=== PATIENT | female | born 1970 | race Hispanic/Latino ===

== ENCOUNTER 2021-04-30 18:02 | Inpatient (IN) | payer BC ==
--- NOTE | 2021-04-30 22:14 | XRay Report ---
RIGHT TOES 2 VIEWS INDICATION / CLINICAL INFORMATION: Toe pain possible infection COMPARISON: None available. FINDINGS: BONES / JOINT(S): No acute fracture or subluxation. Bony erosion distal phalanx great toe best seen a t the tuft.. SOFT TISSUES: Since of soft tissue gas compatible with infection extending from the great toe proxima lly to the level the mid foot along the medial aspect. There is also extension adjacent to the proxim al phalanx of the second digit. ADDITIONAL FINDINGS: None. Impression: Osteomyelitis with extensive soft tissue infection. Signer Name: Florentin Ty MD Signed: 04/30/2021 10:09 PM Workstation Name: [id number]
[2021-04-30 22:23] LABS: Basophils # (Auto) 0.1 K/mm3 (0.0-0.1); Basophils % (Auto) 0.4 % (0.0-1.8); Eosinophils % (Auto) 0.1 % (0.0-4.3); Hematocrit 39.4 % (30.3-42.9); Hemoglobin 13.2 gm/dl (10.1-14.3); Lymphocytes # (Auto) 0.7 K/mm3 (1.2-5.4); Lymphocytes % (Auto) 5.7 % (13.4-35.0); Mean Corpuscular HGB Conc 33 % (30-34); Mean Corpuscular Volume 86 fl (79-97); Monocytes # (Auto) 0.9 K/mm3 (0.0-0.8); Monocytes % (Auto) 6.6 % (0.0-7.3); Platelet Count 236 K/mm3 (140-440); Red Cell Distribution Width 14.6 % (13.2-15.2)
[2021-04-30 22:33] LABS: Albumin 2.9 g/dL (3.9-5); Calcium 8.7 mg/dL (8.4-10.2)
[2021-05-01 00:01] LABS: Erythrocyte Sedimentation Rate 33 mm/Hr (0-20)
--- NOTE | 2021-05-01 01:28 | Emergency Department Report ---
ED Extremity Problem HPI - General Chief complaint: Extremity Problem,Nontraumatic Stated complaint: RT FOOT DISCOLORED Time Seen by Provider: 05/01/21 01:15 Source: patient Mode of arrival: Wheelchair Limitations: No Limitations - History of Present Illness Initial comments: Patient is a 51-year-old female presents emergency room with complaints of right foot discoloration and pain. Patient states she was evaluated in the ER and discharged home. Patient states that the foot pain and discoloration started after she smashed her right great toenail. Patient states that she was evaluated in the ER and discharged home. Patient states that since then the discoloration and pain and infection and redness has worsened. Patient states that she is already had an ultrasound to her right lower extremity to rule out a DVT. Patient states she is not taking oral antibiotics. Patient states the pain is a 10 out of 10. Patient states the pain is worsening. Patient states the pain is severe. Patient states is a stabbing pain. Patient denies fever and chills. Patient denies chest pain and shortness of breath. Patient denies headache. Patient denies dizziness. Patient denies recent travel. Patient denies recent international travel. Pat ient denies exposure to the novel coronavirus. Patient denies sick contacts. Patient denies fever and chills. Patient denies cough. Patient denies diarrhea. Patient denies coming in contact with anybody with symptoms of the novel coronavirus. MD Complaint: extremity pain, extremity swelling Location: right, lower extremity History of Same: Yes Radiation: none Severity scale (0 -10): 10 Quality: stabbing Consistency: constant Improves with: rest Worsens with: weight bearing, walking, palpation Associated Symptoms: denies: chest pain, shortness of breath, fever, myalgias, arthralgias - Related Data Allergies Allergy/AdvReac Type Severity Reaction Status Date / Time No Known Allergies Allergy Unverified 04/30/21 18:32 ED Review of Systems ROS: Stated complaint: RT FOOT DISCOLORED Other details as noted in HPI Constitutional: denies: chills, fever Eyes: denies: eye pain, eye discharge, vision change ENT: denies: ear pain, throat pain Respiratory: denies: cough, shortness of breath, wheezing Cardiovascular: denies: chest pain, palpitations Endocrine: no symptoms reported Gastrointestinal: denies: abdominal pain, nausea, diarrhea Genitourinary: denies: urgency, dysuria, discharge Musculoskeletal: denies: back pain, joint swelling, arthralgia Skin: denies: rash, lesions Neurological: denies: headache, weakness, paresthesias Psychiatric: denies: anxiety, depression Hematological/Lymphatic: denies: easy bleeding, easy bruising ED Past Medical Hx - Past Medical History Previous Medical History?: Yes Hx Diabetes: Yes Additional medical history: PCOS - Surgical History Past Surgical History?: Yes Additional Surgical History: muscles in eyes cut, kidney stretched, urethra stretched, tonsil, hyst - Family History Family history: no significant - Social History Smoking Status: Never Smoker Substance Use Type: None ED Physical Exam - General Limitations: No Limitations General appearance: alert, in no apparent distress - Head Head exam: Present: atraumatic, normocephalic - Eye Eye exam: Present: normal appearance - ENT ENT exam: Present: mucous membranes moist - Neck Neck exam: Present: normal inspection - Respiratory Respiratory exam: Present: normal lung sounds bilaterally. Absent: respiratory distress - Cardiovascular Cardiovascular Exam: Present: regular rate, normal rhythm. Absent: systolic murmur, diastolic murmur, rubs, gallop - GI/Abdominal GI/Abdominal exam: Present: soft, normal bowel sounds - Extremities Exam Extremities exam: Present: normal inspection (Except for right foot.), tenderness (Right foot), other (Right foot great toe discoloration noted. Patient has degloving. Patient has redness to the skin. Patient has a purulent discharge.). Absent: calf tenderness - Back Exam Back exam: Present: normal inspection - Neurological Exam Neurological exam: Present: alert, oriented X3 - Psychiatric Psychiatric exam: Present: normal affect, normal mood - Skin Skin exam: Present: warm, dry, intact, normal color. Absent: rash ED Course Vital Signs 04/30/21 18:33 Temperature 99.4 F Pulse Rate 114 H Respiratory 20 Rate Blood Pressure 112/59 O2 Sat by Pulse 99 Oximetry - Reevaluation(s) Reevaluation #1: I discussed all results with patient. I discussed plan of care with patient. Patient agrees with plan of care and admission. Patient to be admitted to the hospitalist service. 05/01/21 01:45 - Consultations Consultation #1: Hospitalist consulted for admission. Hospitalist to admit patient. 05/01/21 01:50 ED Medical Decision Making - Lab Data Result diagrams: 04/30/21 21:59 04/30/21 21:59 - Radiology Data Radiology results: report reviewed, image reviewed RIGHT TOES 2 VIEWS INDICATION / CLINICAL INFORMATION: Toe pain possible infection COMPARISON: None available. FINDINGS: BONES / JOINT(S): No acute fracture or subluxation. Bony erosion distal phalanx great toe best seen at the tuft.. SOFT TISSUES: Since of soft tissue gas compatible with infection extending from the great toe proximally to the level the mid foot along the medial aspect. There is also extension adjacent to the proximal phalanx of the second digit. ADDITIONAL FINDINGS: None. Impression: Osteomyelitis with extensive soft tissue infection. - Medical Decision Making Patient is a 51-year-old female that presents emergency room with complaints of right great toe discoloration and pain. 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 Patient right foot is warm to touch. Patient has good pulses in both feet. Patient had an x-ray done of the right foot and it shows osteomyelitis with subcutaneous gas. Patient's tach ycardic and elevated WBC. Patient is also found to be septic. Patient started on septic protocol after initial evaluation. Patient given antibiotics. Patient given IV fluids. Patient had labs done which showed elevated WBC and acute renal failure. Patient given broad-spectrum antibiotics to include Zosyn and vancomycin. Patient admitted to the hospital service for further evaluation and treatment. Critical care time documented due to the multiple reassessments, prolonged time at the bedside, interpretation of diagnostics and labs. - Differential Diagnosis sepsis. dm ulcer, cellulitis, abscess, Critical Care Time: Yes Critical care time in (mins) excluding proc time.: 35 Critical care attestation.: If time is entered above; I have spent that time in minutes in the direct care o f this critically ill patient, excluding procedure time. Critical Care Time: 35 minutes ED Disposition Clinical Impression: Foot pain, right DM foot ulcer Qualifiers: Diabetic foot ulcer location: toe Diabetes mellitus type: type 2 Laterality: right Non-pressure ulcer stage: unspecified non-pressure ulcer stage Qualified Code(s): E11.621 - Type 2 diabetes mellitus with foot ulcer; L97.519 - Non- pressure chronic ulcer of other part of right foot with unspecified severity Sepsis Qualifiers: Sepsis type: sepsis due to unspecified organism Sepsis acute organ dysfunction status: with acute organ dysfunction Severe sepsis acute organ dysfunction type: acute renal failure Acute renal failure type: unspecified Severe sepsis shock status: without septic shock Qualified Code(s): A41.9 - Sepsis, unspecified organism; R65.20 - Severe sepsis without septic shock; N17.9 - Acute kidney failure, unspecified ARF (acute renal failure) Qualifiers: Acute renal failure type: unspecified Qualified Code(s): N17.9 - Acute kidney f ailure, unspecified Osteomyelitis Qualifiers: Osteomyelitis type: unspecified type Osteomyelitis location: unspecified site Qualified Code(s): M86.9 - Osteomyelitis, unspecified Disposition: 09 OP ADMIT IP TO THIS HOSP Is pt being admited?: Yes Does the pt Need Aspirin: No Condition: Critical Instructions: Diabetes Mellitus Type 2 in Adults (ED) Time of Disposition: 01:55
[2021-05-01] MEDS ORDERED: SODIUM CHLORIDE 0.9% 1000 ML IV SOLN IV ONE (01:29)
[2021-05-01] MEDS ORDERED: PIPERACILLIN/TAZOBACTAM 3.375 3.375 GM/50 ML BAG IV ONE (01:39)
[2021-05-01] MEDS ORDERED: VANCOMYCIN/NS 1 GM/250 ML 1 GM/250 ML BAG IV NR (02:00)
--- NOTE | 2021-05-01 02:02 | History and Physical Report ---
History of Present Illness Date of examination: 05/01/21 Date of admission: 04/30/21 Chief complaint: Right great pain and pain Right toe diabetic ulcer History of present illness: This is a 51-year-old female presents ED with complaints of right foot pain and ulcer. patient past medical history of diabetes. Patient states that the foot pain and discoloration started is ongoing for about 2 weeks after she smashed her right great toenail. She said she came to ED and was discharged home. Patient states that since then the discoloration and pain and infection and redness has worsened. X-ray of right great toe shoed osteomylitis. Patient states Patient states the pain is a 6 out of 10. Patient denies alcohol, tobacco and illicit drug use. Past History Past Medical History: diabetes, other (right great toe diabetic ulcer) Past Surgical History: No surgical history Social history: no significant social history, lives with family Family history: diabetes Medications and Allergies Allergies Allergy/AdvReac Type Severity Reaction Status Date / Time No Known Allergies Allergy Unverified 04/30/21 18:32 Active Meds: Active Medications Piperacillin Sod/Tazobactam Sod (Zosyn/Ns 3.375gm/50ml) 3.375 gm in 50 mls @ 100 mls/hr IV ONCE ONE; Protocol Stop: 05/01/21 02:08 Vancomycin HCl (Vancomycin/Ns 1 Gm/250 Ml) 1 gm in 250 mls @ 167.007 mls/hr IV PREOP NR; Protocol Review of Systems Ears, nose, mouth and throat: no epistaxis, no bleeding gums Breasts: no discharge Cardiovascular: leg edema Gastrointestinal: no melena Integumentary: redness (Patient has bilateral leg edema, right foot great toe edema, ulcer with redness and discoloration. Unable to feel pulses to the right leg /right foot mostly secondary to edema. Vascular surgeon has been consulted), blisters, color changes, foot/leg ulcers Neurological: no confusion Psychiatric: anxiety Hematologic/Lymphatic: no easy bruising, no easy bleeding Allergic/Immunologic: no urticaria Exam - Constitutional Vitals: Temp Pulse Resp BP Pulse Ox 98.9 F 95 H 20 104/61 99 05/01/21 01:28 05/01/21 01:28 05/01/21 01:32 05/01/21 01:28 05/01/21 01:32 General appearance: Present: mild distress, obese - EENT Eyes: Present: PERRL ENT: hearing intact, clear oral mucosa - Neck Neck: Present: supple, normal ROM - Respiratory Respiratory effort: normal Respiratory: bilateral: CTA - Cardiovascular Heart Sounds: Present: S1 & S2. Absent: rub, click - Extremities Extremities: pulses symmetrical, No edema Peripheral Pulses: within normal limits - Abdominal General gastrointestinal: Present: soft, non-tender, non-distended, normal bowel sounds Female genitourinary: Present: normal - Integumentary Integumentary: Present: clear, warm, dry - Musculoskeletal Musculoskeletal: gait normal, strength equal bilaterally - Psychiatric Psychiatric: appropriate mood/affect, intact judgment & insight - Neurologic Neurologic: CNII-XII intact, moves all extremities - Allied Health Allied health notes reviewed: nursing Results - Labs CBC & Chem 7: 04/30/21 21:59 04/30/21 21:59 Labs: Abnormal lab results 04/30/21 04/30/21 04/30/21 Range/Units 18:37 21:59 21:59 WBC 13.2 H (4.5-11.0) K/mm3 Lymph % (Auto) 5.7 L (13.4-35.0) % Lymph # (Auto) 0.7 L (1.2-5.4) K/mm3 Door # (Auto) 0.9 H (0.0-0.8) K/mm3 Seg Neutrophils % 87.2 H (40.0-70.0) % Seg Neutrophils # 11.5 H (1.8-7.7) K/mm3 Sodium 133 L (137-145) mmol/L Chloride 94.1 L (98-107) mmol/L BUN 27 H (7-17) mg/dL Creatinine 1.5 H (0.6-1.2) mg/dL Glucose 225 H (65-100) mg/dL POC Glucose 272 H (70-105) mg/dL Total Bilirubin 3.10 H (0.1-1.2) mg/dL Alkaline Phosphatase 611 H (35-129) units/L Albumin 2.9 L (3.9-5) g/dL Assessment and Plan - Patient Problems (1) DM foot ulcer Current Visit: Yes Status: Acute Qualifiers: Diabetic foot ulcer location: toe Diabetes mellitus type: type 2 Lat erality: right Non-pressure ulcer stage: unspecified non-pressure ulcer stage Qualified Code(s): E11.621 - Type 2 diabetes mellitus with foot ulcer; L97.519 - Non-pressure chronic ulcer of other part of right foot with unspecified sev erity Plan to address problem: Bilateral leg edema, right foot and right great toe ulcer with discoloration. Unable to feel right foot pulse likely secondary to swelling/edema. Infectious disease and vascular surgeon consult Wound care consult (2) Foot pain, right Current Visit: Yes Status: Acute Plan to address problem: Pain manage PRN (3) Osteomyelitis Current Visit: Yes Status: Acute Qualifiers: Osteomyelitis type: unspecified type Osteomyelitis location: unspecified site Qualified Code(s): M86.9 - Osteomyelitis, unspecified Plan to address problem: ID consult follow-up with recommendation Patient given vancomycin in ED X-ray great toe positive for osteomylitis (4) Sepsis Current Visit: Yes Status: Acute Qualifiers: Sepsis type: sepsis due to unspecified organism Sepsis acute organ dysfunction status: with acute organ dysfunction Severe sepsis acute organ dysfunction type: acute renal failure Acute renal failure type: unspecified Severe sepsis shock status: without septic shock Qualified Code(s): A41.9 - Sepsis, unspecified organism; R65.20 - Severe sepsis without septic shock; N17.9 - Acute kidney failure, unspecified Plan to address problem: 2/2 to osteomylites-start IV hydration Monitor WBC F/u with ID recommendation (5) ARF (acute renal failure) Current Visit: Yes Status: Acute Qualifiers: Acute renal failure type: unspecified Qualified Code(s): N17.9 - Acute kidney failure, unspecified Plan to address problem: Monitor Kidney function avoid nephrotoxic drugs IV hydration and we'll consult pattern and chain maker if needed (6) DVT prophylaxis Current Visit: Yes Status: Acute Plan to address problem: heparin subcutaneous
[2021-05-01] MEDS ORDERED: SENNOSIDES 8.6 MG TAB PO PRN (02:30)
[2021-05-01] MEDS ORDERED: IBUPROFEN 600 MG TAB PO PRN (02:30)
[2021-05-01] MEDS ORDERED: ACETAMINOPHEN 325 MG TAB PO PRN ×2 (02:30)
[2021-05-01] MEDS ORDERED: VANCOMYCIN 2,000 MG in SODIUM CHLORIDE 0.9% 500 ML 500 ML IV ONE (02:45)
[2021-05-01] MEDS ORDERED: VANCOMYCIN/NS 1 GM/250 ML 1 GM/250 ML BAG IV SCH (05:00)
[2021-05-01] MEDS ORDERED: PIPERACIL/TAZOBACTA 4.5/NS 100 4.5 GM/100 ML VIAL IV SCH (05:00)
--- NOTE | 2021-05-01 08:14 | Progress Note ---
Assessment and Plan Assessment and plan: Sepsis. Present on admission. Patient meets criteria given the leukocytosis, tachycardia and diagnosis of osteomyelitis. Right great toe cellulitis/osteomyelitis. Diabetic foot ulcer. Diabetes mellitus type 2, uncontrolled Acute kidney injury. Etiology likely secondary to sepsis/ATN +/-vasomotor nephropathy. PCOS. 05/01/2021. Continue IV antibiotics and follow-up blood cultures. ID consultati on pending. Consider surgery consultation. History Interval history: No new issues overnight. Hospitalist Physical - Constitutional Vitals: Temp Pulse Resp BP Pulse Ox 98.9 F 77 26 H 111/51 92 05/01/21 01:28 05/01/21 07:45 05/01/21 07:45 05/01/21 07:45 05/01/21 07:45 General appearance: Present: mild distress, obese - EENT Eyes: Present: PERRL, EOM intact ENT: hearing intact, clear oral mucosa, dentition normal - Neck Neck: Present: supple, normal ROM - Respiratory Respiratory effort: normal Respiratory: bilateral: CTA - Cardiovascular Rhythm: regular Heart Sounds: Present: S1 & S2. Absent: gallop, rub - Extremities Extremities: no ischemia, Full ROM Extremity abnormal: other (Right foot and great toe with erythema and ulceration of the great toe) - Abdominal General gastrointestinal: soft, non-tender, non-distended, normal bowel sounds - Integumentary Integumentary: Present: clear, warm, dry - Neurologic Neurologic: CNII-XII intact, moves all extremities Results - Labs CBC & Chem 7: 04/30/21 21:59 04/30/21 21:59 Labs: Laboratory Last Values WBC 13.2 K/mm3 (4.5-11.0) H 04/30/21 21:59 RBC 4.60 M/mm3 (3.65-5.03) 04/30/21 21:59 Hgb 13.2 gm/dl (10.1-14.3) 04/30/21 21:59 Hct 39.4 % (30.3-42.9) 04/30/21 21:59 MCV 86 fl (79-97) 04/30/21 21:59 MCH 29 pg (28-32) 04/30/21 21:59 MCHC 33 % (30-34) 04/30/21 21:59 RDW 14.6 % (13.2-15.2) 04/30/21 21:59 Plt Count 236 K/mm3 (140-440) 04/30/21 21:59 Lymph % (Auto) 5.7 % (13.4-35.0) L 04/30/21 21:59 [place] % (Auto) 6.6 % (0.0-7.3) 04/30/21 21:59 Eos % (Auto) 0.1 % (0.0-4.3) 04/30/21 21:59 Baso % (Auto) 0.4 % (0.0-1.8) 04/30/21 21:59 Lymph # (Auto) 0.7 K/mm3 (1.2-5.4) L 04/30/21 21:59 [place] # (Auto) 0.9 K/mm3 (0.0-0.8) H 04/30/21 21:59 Eos # (Auto) 0.0 K/mm3 (0.0-0.4) 04/30/21 21:59 Baso # (Auto) 0.1 K/mm3 (0.0-0.1) 04/30/21 21:59 Seg Neutrophils % 87.2 % (40.0-70.0) H 04/30/21 21:59 Seg Neutrophils # 11.5 K/mm3 (1.8-7.7) H 04/30/21 21:59 ESR 33 mm/Hr (0-20) 04/30/21 21:59 Sodium 133 mmol/L (137-145) L 04/30/21 21:59 Potassium 4.2 mmol/L (3.6-5.0) 04/30/21 21:59 Chloride 94.1 mmol/L (98-107) L 04/30/21 21:59 Carbon Dioxide 24 mmol/L (22-30) 04/30/21 21:59 Anion Gap 19 mmol/L 04/30/21 21:59 BUN 27 mg/dL (7-17) H 04/30/21 21:59 Creatinine 1.5 mg/dL (0.6-1.2) H 04/30/21 21:59 Estimated GFR 37 ml/min 04/30/21 21:59 BUN/Creatinine Ratio 18 % 04/30/21 21:59 Glucose 225 mg/dL (65-100) H 04/30/21 21:59 POC Glucose 272 mg/dL (70-105) H 04/30/21 18:37 Lactic Acid 1.90 mmol/L (0.7-2.0) 05/01/21 03:19 Calcium 8.7 mg/dL (8.4-10.2) 04/30/21 21:59 Total Bilirubin 3.10 mg/dL (0.1-1.2) H 04/30/21 21:59 AST 38 units/L (5-40) 04/30/21 21:59 ALT 37 units/L (7-56) 04/30/21 21:59 Alkaline Phosphatase 611 units/L (35-129) H 04/30/21 21:59 Total Protein 7.1 g/dL (6.3-8.2) 04/30/21 21:59 Albumin 2.9 g/dL (3.9-5) L 04/30/21 21:59 Albumin/Globulin Ratio 0.7 % 04/30/21 21:59 Blood Type O POSITIVE 05/01/21 03:25 Antibody Screen Negative 05/01/21 03:25 Microbiology: Microbiology 05/01/21 02:04 Peripheral/Venous Blood Culture - Preliminary Culture in Progress 05/01/21 01:45 Peripheral/Venous Blood Culture - Preliminary Culture in Progress Active Medications - Current Medications Current Medications: Generic Name Dose Route Start Last Admin Trade Name Freq PRN Reason Stop Dose Admin Acetaminophen 650 mg 05/01/21 02:30 Acetaminophen 325 Mg Tab PO Q4H PRN Pain MILD(1-3)/Fever >100.5/MORALES Hydrocodone Bitart/Acetaminophen 2 each 05/01/21 02:30 Hydrocodone/Acetaminophen 5-325 Mg Tab PO Q6H PRN Pain, Moderate (4-6) Heparin Sodium (Porcine) 5,000 unit 05/01/21 06:00 Heparin 5,000 Unit/1 Ml Vial SUB-Q Q8HR MARI Sodium Chloride 1,000 mls @ 75 mls/hr 05/01/21 02:30 Nacl 0.9% 1000 Ml IV DIRECT MARI Vancomycin HCl 1,500 mg/ 530 mls @ 333.333 mls/hr 05/02/21 06:00 Sodium Chloride IV Q24H MARI Piperacillin Sod/Tazobactam Sod 4.5 gm in 100 mls @ 200 mls/hr 05/01/21 10:00 Zosyn/Ns 4.5gm/100ml IV Q8H MARI Protocol Ibuprofen 600 mg 05/01/21 02:30 Ibuprofen 600 Mg Tab PO Q6H PRN Pain, Mild (1-3) Ondansetron HCl 4 mg 05/01/21 02:30 Ondansetron 4 Mg/2 Ml Inj IV Q8H PRN Nausea And Vomiting Senna 8.6 mg 05/01/21 02:30 Sennosides 8.6 Mg Tab PO Q12HR PRN Constipation Sodium Chloride 10 ml 05/01/21 10:00 Sodium Chloride 0.9% 10 Ml Flush Syringe IV BID MARI
[2021-05-01] MEDS ORDERED: DEXTROSE 50% IN WATER (25GM) 50 ML SYRINGE IV ONE (09:00)
[2021-05-01] MEDS ORDERED: PIPERACIL-TAZO 2.25 GM/50 ML 2.25 GM/50 ML BAG IV SCH (10:00)
[2021-05-01] MEDS: HYDROcodone/ACETAMINOPHEN 5-325 MG TAB PO PRN (13:02)
[2021-05-01] MEDS: HEPARIN 5,000 UNIT/1 ML VIAL SUB-Q SCH ×3 (13:03→22:05)
[2021-05-01] MEDS: PIPERACIL/TAZOBACTA 4.5/NS 100 4.5 GM/100 ML VIAL IV SCH ×2 (13:03→17:35)
[2021-05-01] MEDS ORDERED: WATER FOR INJ Sterile (PF) 10 ML ONE (13:38)
--- NOTE | 2021-05-01 14:14 | Event Note ---
Date: 05/01/21 51 year old female with DM infection of the right first digit with osteomyelitis and ARF. Agree with antibiotics. Will need general surgery consult or orthopedics consult for osteomyelitis. Recommend infection disease consult for osteomyelitis. Ordered venous ultrasound for edema. Ordered arterial ultrasound. Will see patient tomorrow once ultrasounds completed to discuss if patient requires angiography.
[2021-05-01] MEDS: SODIUM CHLORIDE 0.9% 1000 ML 1,000 ML IV SCH (15:28)
[2021-05-01] MEDS: INSULIN REGULAR, HUMAN 100 UNITS/1 ML SUB-Q SCH ×2 (17:35→22:58)
[2021-05-01] MEDS ORDERED: INSULIN REGULAR, HUMAN 100 UNITS/1 ML SUB-Q SCH (22:00)
[2021-05-02] MEDS: PIPERACIL/TAZOBACTA 4.5/NS 100 4.5 GM/100 ML VIAL IV SCH ×3 (01:17→18:17)
[2021-05-02 04:13] LABS: Bacteria,Urine 1+ /HPF (Negative); Bilirubin,Urine NEG (Negative); Blood,Urine NEG (Negative); Color,Urine Amber (Yellow); Mucus,Urine FEW /HPF; Protein,Urine <15 mg/dL mg/dL (Negative)
[2021-05-02] MEDS: HEPARIN 5,000 UNIT/1 ML VIAL SUB-Q SCH ×3 (06:03→21:17)
[2021-05-02] MEDS: VANCOMYCIN 1,500 MG in SODIUM CHLORIDE 0.9% 500 ML 500 ML IV SCH (06:03)
[2021-05-02] MEDS: ONDANSETRON 4 MG/2 ML INJ IV PRN (06:25)
[2021-05-02] MEDS: HYDROcodone/ACETAMINOPHEN 5-325 MG TAB PO PRN ×2 (06:25→18:20)
[2021-05-02 06:38] LABS: Basophils % (Auto) 0.4 % (0.0-1.8); Eosinophils % (Auto) 0.3 % (0.0-4.3); Hematocrit 33.9 % (30.3-42.9); Hemoglobin 11.6 gm/dl (10.1-14.3); Lymphocytes # (Auto) 0.6 K/mm3 (1.2-5.4); Lymphocytes % (Auto) 5.8 % (13.4-35.0); Mean Corpuscular HGB Conc 34 % (30-34); Mean Corpuscular Volume 86 fl (79-97); Monocytes # (Auto) 0.7 K/mm3 (0.0-0.8); Monocytes % (Auto) 7.4 % (0.0-7.3); Platelet Count 199 K/mm3 (140-440); Red Blood Count 3.95 M/mm3 (3.65-5.03); Red Cell Distribution Width 14.5 % (13.2-15.2)
[2021-05-02 06:52] LABS: Albumin 2.5 g/dL (3.9-5); Calcium 8.2 mg/dL (8.4-10.2)
[2021-05-02] MEDS: INSULIN REGULAR, HUMAN 100 UNITS/1 ML SUB-Q SCH ×4 (07:55→21:55)
--- NOTE | 2021-05-02 09:05 | Progress Note ---
Assessment and Plan Assessment and plan: Sepsis. Present on admission. Patient meets criteria given the leukocytosis, tachycardia and diagnosis of osteomyelitis. Right great toe cellulitis/osteomyelitis. Diabetic foot ulcer. Diabetes mellitus type 2, uncontrolled Acute kidney injury. Etiology likely secondary to sepsis/ATN +/-vasomotor nephropathy. PCOS. 05/01/2021. Continue IV antibiotics and follow-up blood cultures. ID consultati on pending. Consider surgery consultation. 05/02/2021. Consult general surgery for further evaluation. Continue IV antibiotics and follow-up blood cultures. ID consultation pending. History Interval history: No new issues overnight. Hospitalist Physical - Constitutional Vitals: Temp Pulse Resp BP Pulse Ox 97.8 F 90 18 110/53 96 05/02/21 04:41 05/02/21 04:41 05/02/21 04:41 05/02/21 04:41 05/02/21 04:41 General appearance: Present: mild distress, obese - EENT Eyes: Present: PERRL, EOM intact ENT: hearing intact, clear oral mucosa, dentition normal - Neck Neck: Present: supple, normal ROM - Respiratory Respiratory effort: normal Respiratory: bilateral: CTA - Cardiovascular Rhythm: regular Heart Sounds: Present: S1 & S2. Absent: gallop, rub - Extremities Extremities: no ischemia, No edema, Full ROM - Abdominal General gastrointestinal: soft, non-tender, non-distended, normal bowel sounds - Integumentary Integumentary: Present: clear, warm, dry - Neurologic Neurologic: CNII-XII intact, moves all extremities Results - Labs CBC & Chem 7: 05/02/21 05:33 05/02/21 05:33 Labs: Laboratory Last Values WBC 9.6 K/mm3 (4.5-11.0) 05/02/21 05:33 RBC 3.95 M/mm3 (3.65-5.03) 05/02/21 05:33 Hgb 11.6 gm/dl (10.1-14.3) 05/02/21 05:33 Hct 33.9 % (30.3-42.9) 05/02/21 05:33 MCV 86 fl (79-97) 05/02/21 05:33 MCH 29 pg (28-32) 05/02/21 05:33 MCHC 34 % (30-34) 05/02/21 05:33 RDW 14.5 % (13.2-15.2) 05/02/21 05:33 Plt Count 199 K/mm3 (140-440) 05/02/21 05:33 Lymph % (Auto) 5.8 % (13.4-35.0) L 05/02/21 05:33 [place] % (Auto) 7.4 % (0.0-7.3) H 05/02/21 05:33 Eos % (Auto) 0.3 % (0.0-4.3) 05/02/21 05:33 Baso % (Auto) 0.4 % (0.0-1.8) 05/02/21 05:33 Lymph # (Auto) 0.6 K/mm3 (1.2-5.4) L 05/02/21 05:33 [place] # (Auto) 0.7 K/mm3 (0.0-0.8) 05/02/21 05:33 Eos # (Auto) 0.0 K/mm3 (0.0-0.4) 05/02/21 05:33 Baso # (Auto) 0.0 K/mm3 (0.0-0.1) 05/02/21 05:33 Seg Neutrophils % 86.1 % (40.0-70.0) H 05/02/21 05:33 Seg Neutrophils # 8.3 K/mm3 (1.8-7.7) H 05/02/21 05:33 ESR 33 mm/Hr (0-20) 04/30/21 21:59 Sodium 142 mmol/L (137-145) D 05/02/21 05:33 Potassium 3.7 mmol/L (3.6-5.0) 05/02/21 05:33 Chloride 103.7 mmol/L (98-107) 05/02/21 05:33 Carbon Dioxide 27 mmol/L (22-30) 05/02/21 05:33 Anion Gap 15 mmol/L 05/02/21 05:33 BUN 33 mg/dL (7-17) H 05/02/21 05:33 Creatinine 1.3 mg/dL (0.6-1.2) H 05/02/21 05:33 Estimated GFR 43 ml/min 05/02/21 05:33 BUN/Creatinine Ratio 25 % 05/02/21 05:33 Glucose 75 mg/dL (65-100) 05/02/21 05:33 POC Glucose 65 mg/dL (70-105) L 05/02/21 07:50 Lactic Acid 1.90 mmol/L (0.7-2.0) 05/01/21 03:19 Calcium 8.2 mg/dL (8.4-10.2) L 05/02/21 05:33 Total Bilirubin 1.60 mg/dL (0.1-1.2) H 05/02/21 05:33 AST 30 units/L (5-40) 05/02/21 05:33 ALT 31 units/L (7-56) 05/02/21 05:33 Alkaline Phosphatase 438 units/L (35-129) H 05/02/21 05:33 Total Protein 5.8 g/dL (6.3-8.2) L 05/02/21 05:33 Albumin 2.5 g/dL (3.9-5) L 05/02/21 05:33 Albumin/Globulin Ratio 0.8 % 05/02/21 05:33 Urine Color Tia (Yellow) 05/01/21 Unknown Urine Turbidity Slightly-cloudy (Clear) 05/01/21 Unknown Urine pH 5.0 (5.0-7.0) 05/01/21 Unknown Ur Specific [place] 1.018 (1.003-1.030) 05/01/21 Unknown Urine Protein <15 mg/dl mg/dL (Negative) 05/01/21 Unknown Urine Glucose (UA) Neg mg/dL (Negative) 05/01/21 Unknown Urine Ketones Neg mg/dL (Negative) 05/01/21 Unknown Urine Blood Neg (Negative) 05/01/21 Unknown Urine Nitrite Neg (Negative) 05/01/21 Unknown Urine Bilirubin Neg (Negative) 05/01/21 Unknown Urine Urobilinogen 4.0 mg/dL (<2.0) 05/01/21 Unknown Ur Leukocyte Esterase Neg (Negative) 05/01/21 Unknown Urine WBC (Auto) 6.0 /HPF (0.0-6.0) 05/01/21 Unknown Urine RBC (Auto) 4.0 /HPF (0.0-6.0) 05/01/21 Unknown U Epithel Cells (Auto) 4.0 /HPF (0-13.0) 05/01/21 Unknown Urine Bacteria (Auto) 1+ /HPF (Negative) 05/01/21 Unknown Urine Mucus Few /HPF 05/01/21 Unknown Blood Type O POSITIVE 05/01/21 03:25 Antibody Screen Negative 05/01/21 03:25 Microbiology: Microbiology 05/01/21 Unknown Wound - Deep Wound Culture - Preliminary 05/01/21 02:04 Peripheral/Venous Blood Culture - Preliminary NO GROWTH AFTER 24 HOURS 05/01/21 01:45 Peripheral/Venous Blood Culture - Preliminary NO GROWTH AFTER 24 HOURS Sales/IV: Voiding Method Toilet Active Medications - Current Medications Current Medications: Generic Name Dose Route Start Last Admin Trade Name Freq PRN Reason Stop Dose Admin Acetaminophen 650 mg 05/01/21 02:30 05/01/21 13:01 Acetaminophen 325 Mg Tab PO 650 mg Q4H PRN Administration Pain MILD(1-3)/Fever >100.5/MORALES Hydrocodone Bitart/Acetaminophen 2 each 05/01/21 02:30 05/02/21 06:25 Hydrocodone/Acetaminophen 5-325 Mg Tab PO 2 each Q6H PRN Administration Pain, Moderate (4-6) Heparin Sodium (Porcine) 5,000 unit 05/01/21 06:00 05/02/21 06:03 Heparin 5,000 Unit/1 Ml Vial SUB-Q 5,000 unit Q8HR MARI Administration Sodium Chloride 1,000 mls @ 75 mls/hr 05/01/21 02:30 05/01/21 15:28 Nacl 0.9% 1000 Ml IV 75 mls/hr DIRECT MARI Administration Vancomycin HCl 1,500 mg/ 530 mls @ 333.333 mls/hr 05/02/21 06:00 05/02/21 06:03 Sodium Chloride IV 333.333 mls/hr Q24H MARI Administration Piperacillin Sod/Tazobactam Sod 4.5 gm in 100 mls @ 200 mls/hr 05/01/21 10:00 05/02/21 01:17 Zosyn/Ns 4.5gm/100ml IV 200 mls/hr Q8H MARI Administration Protocol Ibuprofen 600 mg 05/01/21 02:30 Ibuprofen 600 Mg Tab PO Q6H PRN Pain, Mild (1-3) Insulin Human Regular 0 units 05/01/21 17:30 05/02/21 07:55 Insulin Regular, Human 100 Units/1 Ml SUB-Q Not Given ACHS [facility] Protocol Ondansetron HCl 4 mg 05/01/21 02:30 05/02/21 06:25 Ondansetron 4 Mg/2 Ml Inj IV 4 mg Q8H PRN Administration Nausea And Vomiting Senna 8.6 mg 05/01/21 02:30 Sennosides 8.6 Mg Tab PO Q12HR PRN Constipation Sodium Chloride 10 ml 05/01/21 10:00 05/01/21 22:05 Sodium Chloride 0.9% 10 Ml Flush Syringe IV 10 ml BID MARI Administration
[2021-05-02] MEDS: SODIUM CHLORIDE 0.9% 1000 ML 1,000 ML IV SCH (09:54)
--- NOTE | 2021-05-02 16:24 | Consultation ---
History of Present Illness - Reason for Consult Consult date: 05/02/21 Diabetic foot infection Requesting physician: LEOBARDO CASTLE - History of Present Illness 51-year-old female presents ED with complaints of right foot pain and ulcer. patient past medical history of diabetes. Patient states that the foot pain and discoloration started is ongoing for about 2 weeks after she smashed her right great toenail. She said she came to ED and was discharged home. Patient states that since then the discoloration and pain and infection and redness has worsened. X-ray of right great toe shoed osteomylitis. Patient states Patient states the pain is a 6 out of 10. Patient denies alcohol, tobacco and illicit drug use. Patient reports she was recently admitted to [facility] for diabetic hyperglycemic issues. She was discharged and then on Monday she noted that her right foot was infected and painful and went to the emergency room. She does not know and cannot state the progression of her wound. The area was marked. There is clearly infected tissue in the right foot. She is on antibiotics. She has acute renal failure. Past History Past Medical History: diabetes, other (right great toe diabetic ulcer) Past Surgical History: No surgical history Social history: no significant social history, lives with family Family history: diabetes Medications and Allergies Allergies Allergy/AdvReac Type Severity Reaction Status Date / Time No Known Allergies Allergy Unverified 04/30/21 18:32 Home Medications Medication Instructions Recorded Confirmed Last Taken Type Gabapentin [Neurontin] 900 mg PO DAILY PRN 05/01/21 05/01/21 Unknown History glipiZIDE [Glucotrol] 10 mg PO BID 05/01/21 05/01/21 04/30/21 22:00 History Active Meds: Active Medications Acetaminophen (Acetaminophen 325 Mg Tab) 650 mg PO Q4H PRN PRN Reason: Pain MILD(1-3)/Fever >100.5/MORALES Last Admin: 05/01/21 13:01 Dose: 650 mg Documented by: Hydrocodone Bitart/Acetaminophen (Hydrocodone/Acetaminophen 5-325 Mg Tab) 2 each PO Q6H PRN PRN Reason: Pain, Moderate (4-6) Last Admin: 05/02/21 06:25 Dose: 2 each Documented by: Heparin Sodium (Porcine) (Heparin 5,000 Unit/1 Ml Vial) 5,000 unit SUB-Q Q8HR [facility] Last Admin: 05/02/21 13:02 Dose: 5,000 unit Documented by: Sodium Chloride (Nacl 0.9% 1000 Ml) 1,000 mls @ 75 mls/hr IV DIRECT [facility] Last Admin: 05/02/21 09:54 Dose: 75 mls/hr Documented by: Vancomycin HCl 1,500 mg/ (Sodium Chloride) 530 mls @ 333.333 mls/hr IV Q24H [facility] Last Admin: 05/02/21 06:03 Dose: 333.333 mls/hr Documented by: Piperacillin Sod/Tazobactam Sod (Zosyn/Ns 4.5gm/100ml) 4.5 gm in 100 mls @ 200 mls/hr IV Q8H [facility]; Protocol Last Admin: 05/02/21 09:54 Dose: 200 mls/hr Documented by: Ibuprofen (Ibuprofen 600 Mg Tab) 600 mg PO Q6H PRN PRN Reason: Pain, Mild (1-3) Insulin Human Regular (Insulin Regular, Human 100 Units/1 Ml) 0 units SUB-Q ACHS [facility]; Protocol Last Admin: 05/02/21 12:48 Dose: 2 units Documented by: Ondansetron HCl (Ondansetron 4 Mg/2 Ml Inj) 4 mg IV Q8H PRN PRN Reason: Nausea And Vomiting Last Admin: 05/02/21 06:25 Dose: 4 mg Documented by: Senna (Sennosides 8.6 Mg Tab) 8.6 mg PO Q12HR PRN PRN Reason: Constipation Sodium Chloride (Sodium Chloride 0.9% 10 Ml Flush Syringe) 10 ml IV BID [facility] Last Admin: 05/02/21 09:54 Dose: 10 ml Documented by: Review of Systems All systems: negative (see HPI) Exam - Constitutional Vitals: Temp Pulse Resp BP Pulse Ox 97.8 F 84 18 94/64 98 05/02/21 08:30 05/02/21 08:30 05/02/21 09:00 05/02/21 08:30 05/02/21 09:00 General appearance: Present: mild distress (Right foot pain) - EENT Eyes: Present: EOM intact ENT: hearing intact - Respiratory Respiratory effort: normal - Extremities Extremities: pulses intact (Left dorsalis pedis pulse intact, the rest of the pedal pulses are nonpalpable), normal temperature, normal color, abnormal (Right first digit and midfoot medial foot infection) Extremity abnormal: edema (2+ right lower extremity, 1+ left lower extremity), other (Hemosiderin staining of the calves) - Abdominal General gastrointestinal: Present: soft, non-tender - Psychiatric Psychiatric: appropriate mood/affect, cooperative Results - Labs CBC & Chem 7: 05/02/21 05:33 05/02/21 05:33 Labs: Abnormal lab results 05/01/21 05/01/21 05/02/21 Range/Units 16:49 21:35 05:33 Lymph % (Auto) 5.8 L (13.4-35.0) % [place] % (Auto) 7.4 H (0.0-7.3) % Lymph # (Auto) 0.6 L (1.2-5.4) K/mm3 Seg Neutrophils % 86.1 H (40.0-70.0) % Seg Neutrophils # 8.3 H (1.8-7.7) K/mm3 BUN (7-17) mg/dL Creatinine (0.6-1.2) mg/dL POC Glucose 250 H 170 H (70-105) mg/dL Calcium (8.4-10.2) mg/dL Total Bilirubin (0.1-1.2) mg/dL Alkaline Phosphatase (35-129) units/L Total Protein (6.3-8.2) g/dL Albumin (3.9-5) g/dL 05/02/21 05/02/21 05/02/21 Range/Units 05:33 07:50 11:20 Lymph % (Auto) (13.4-35.0) % [place] % (Auto) (0.0-7.3) % Lymph # (Auto) (1.2-5.4) K/mm3 Seg Neutrophils % (40.0-70.0) % Seg Neutrophils # (1.8-7.7) K/mm3 BUN 33 H (7-17) mg/dL Creatinine 1.3 H (0.6-1.2) mg/dL POC Glucose 65 L 157 H (70-105) mg/dL Calcium 8.2 L (8.4-10.2) mg/dL Total Bilirubin 1.60 H (0.1-1.2) mg/dL Alkaline Phosphatase 438 H (35-129) units/L Total Protein 5.8 L (6.3-8.2) g/dL Albumin 2.5 L (3.9-5) g/dL Assessment and Plan 51-year-old female with uncontrolled diabetes who presents with right first digit diabetic foot infection. She has nonpalpable right pedal pulses and a palpable left dorsalis pedis pulse. She has hemosiderin deposition of her calves compatible with venous disease. Despite ordering ultrasound yesterday, these have not been done even today. Discussed with patient that given her abnormal pulse exam and the right first digit infection, she would benefit from diagnostic angiography and possible endovascular revascularization. Risks, benefits, and alternatives discussed. Patient agrees with procedure. Creatinine has improved since admission and will likely continue to improve tomorrow making this possible. Discussed situation with Dr. Evans will see patient tomorrow probably for foot debridement. Patient understands that her issues are limb threatening. Continue antibiotics. Appreciate infectious disease seeing the patient.
--- NOTE | 2021-05-02 17:10 | Consultation ---
History of Present Illness Consult date: 05/02/21 Chief complaint: right foot infection - History of present illness History of present illness: 51 yo F with poorly controlled diabetes who presents to ER with right foot wound that has been presents for the last 3 weeks. Patient states she injured her great toe nail and the infection started at that time. Her legs started to swell and she started to experience pain. She had a similar issue with the left great toe nail which she states got better on its own. She states she did not know how bad the infection was until one of her friends saw it and made her come to hospital. She had Tm 100.7 yesterday but denies fevers at home. No n/v. States her sugars have been dropping low while in the hospital because she doesn't usua lly get insulin at home. Surgery is consulted for diabetic infection of right foot Past History Past Medical History: diabetes, other (right great toe diabetic ulcer) Past Surgical History: No surgical history Social history: no significant social history, lives with family Family history: diabetes Medications and Allergies Allergies Allergy/AdvReac Type Severity Reaction Status Date / Time No Known Allergies Allergy Unverified 04/30/21 18:32 Home Medications Medication Instructions Recorded Confirmed Last Taken Type Gabapentin [Neurontin] 900 mg PO DAILY PRN 05/01/21 05/01/21 Unknown History glipiZIDE [Glucotrol] 10 mg PO BID 05/01/21 05/01/21 04/30/21 22:00 History Active Meds: Active Medications Acetaminophen (Acetaminophen 325 Mg Tab) 650 mg PO Q4H PRN PRN Reason: Pain MILD(1-3)/Fever >100.5/MORALES Last Admin: 05/01/21 13:01 Dose: 650 mg Documented by: Hydrocodone Bitart/Acetaminophen (Hydrocodone/Acetaminophen 5-325 Mg Tab) 2 each PO Q6H PRN PRN Reason: Pain, Moderate (4-6) Last Admin: 05/02/21 06:25 Dose: 2 each Documented by: Heparin Sodium (Porcine) (Heparin 5,000 Unit/1 Ml Vial) 5,000 unit SUB-Q Q8HR [facility]I Last Admin: 05/02/21 13:02 Dose: 5,000 unit Documented by: Sodium Chloride (Nacl 0.9% 1000 Ml) 1,000 mls @ 75 mls/hr IV DIRECT [facility]I Last Admin: 05/02/21 09:54 Dose: 75 mls/hr Documented by: Vancomycin HCl 1,500 mg/ (Sodium Chloride) 530 mls @ 333.333 mls/hr IV Q24H [facility] Last Admin: 05/02/21 06:03 Dose: 333.333 mls/hr Documented by: Piperacillin Sod/Tazobactam Sod (Zosyn/Ns 4.5gm/100ml) 4.5 gm in 100 mls @ 200 mls/hr IV Q8H [facility]; Protocol Last Admin: 05/02/21 09:54 Dose: 200 mls/hr Documented by: Ibuprofen (Ibuprofen 600 Mg Tab) 600 mg PO Q6H PRN PRN Reason: Pain, Mild (1-3) Insulin Human Regular (Insulin Regular, Human 100 Units/1 Ml) 0 units SUB-Q ACHS [facility]; Protocol Last Admin: 05/02/21 12:48 Dose: 2 units Documented by: Ondansetron HCl (Ondansetron 4 Mg/2 Ml Inj) 4 mg IV Q8H PRN PRN Reason: Nausea And Vomiting Last Admin: 05/02/21 06:25 Dose: 4 mg Documented by: Senna (Sennosides 8.6 Mg Tab) 8.6 mg PO Q12HR PRN PRN Reason: Constipation Sodium Chloride (Sodium Chloride 0.9% 10 Ml Flush Syringe) 10 ml IV BID [facility] Last Admin: 05/02/21 09:54 Dose: 10 ml Documented by: Review of Systems All systems: negative (10 pt ROS performed and negative except for that listed in HPI) Exam Vital Signs Temp Pulse Resp BP Pulse Ox 99.4 F 114 H 20 112/59 99 04/30/21 18:33 04/30/21 18:33 04/30/21 18:33 04/30/21 18:33 04/30/21 18:33 Narrative exam: Gen: AAOx3. NAD CV: S1, S2+ resp: even and unlabored Ext: B/L LE edema. R foot with necrotic skin and discoloration of dorsal-medial aspect of foot. There is cellulitis of the great toe and forefoot. There is TTP. There is foul smelling drainage. Venous stasis skin changes Results - Labs 05/02/21 05:33 05/02/21 05:33 Abnormal lab results 05/01/21 05/02/21 05/02/21 Range/Units 21:35 05:33 05:33 Lymph % (Auto) 5.8 L (13.4-35.0) % [place] % (Auto) 7.4 H (0.0-7.3) % Lymph # (Auto) 0.6 L (1.2-5.4) K/mm3 Seg Neutrophils % 86.1 H (40.0-70.0) % Seg Neutrophils # 8.3 H (1.8-7.7) K/mm3 BUN 33 H (7-17) mg/dL Creatinine 1.3 H (0.6-1.2) mg/dL POC Glucose 170 H (70-105) mg/dL Calcium 8.2 L (8.4-10.2) mg/dL Total Bilirubin 1.60 H (0.1-1.2) mg/dL Alkaline Phosphatase 438 H (35-129) units/L Total Protein 5.8 L (6.3-8.2) g/dL Albumin 2.5 L (3.9-5) g/dL 05/02/21 05/02/21 Range/Units 07:50 11:20 Lymph % (Auto) (13.4-35.0) % [place] % (Auto) (0.0-7.3) % Lymph # (Auto) (1.2-5.4) K/mm3 Seg Neutrophils % (40.0-70.0) % Seg Neutrophils # (1.8-7.7) K/mm3 BUN (7-17) mg/dL Creatinine (0.6-1.2) mg/dL POC Glucose 65 L 157 H (70-105) mg/dL Calcium (8.4-10.2) mg/dL Total Bilirubin (0.1-1.2) mg/dL Alkaline Phosphatase (35-129) units/L Total Protein (6.3-8.2) g/dL Albumin (3.9-5) g/dL Diabetes panel 05/02/21 Range/Units 05:33 Sodium 142 D (137-145) mmol/L Potassium 3.7 (3.6-5.0) mmol/L Chloride 103.7 (98-107) mmol/L Carbon Dioxide 27 (22-30) mmol/L BUN 33 H (7-17) mg/dL Creatinine 1.3 H (0.6-1.2) mg/dL Glucose 75 (65-100) mg/dL Calcium 8.2 L (8.4-10.2) mg/dL AST 30 (5-40) units/L ALT 31 (7-56) units/L Alkaline Phosphatase 438 H (35-129) units/L Total Protein 5.8 L (6.3-8.2) g/dL Albumin 2.5 L (3.9-5) g/dL Calcium panel 05/02/21 Range/Units 05:33 Calcium 8.2 L (8.4-10.2) mg/dL Albumin 2.5 L (3.9-5) g/dL Pituitary panel 05/02/21 Range/Units 05:33 Sodium 142 D (137-145) mmol/L Potassium 3.7 (3.6-5.0) mmol/L Chloride 103.7 (98-107) mmol/L Carbon Dioxide 27 (22-30) mmol/L BUN 33 H (7-17) mg/dL Creatinine 1.3 H (0.6-1.2) mg/dL Glucose 75 (65-100) mg/dL Calcium 8.2 L (8.4-10.2) mg/dL Adrenal panel 05/02/21 Range/Units 05:33 Sodium 142 D (137-145) mmol/L Potassium 3.7 (3.6-5.0) mmol/L Chloride 103.7 (98-107) mmol/L Carbon Dioxide 27 (22-30) mmol/L BUN 33 H (7-17) mg/dL Creatinine 1.3 H (0.6-1.2) mg/dL Glucose 75 (65-100) mg/dL Calcium 8.2 L (8.4-10.2) mg/dL Total Bilirubin 1.60 H (0.1-1.2) mg/dL AST 30 (5-40) units/L ALT 31 (7-56) units/L Alkaline Phosphatase 438 H (35-129) units/L Total Protein 5.8 L (6.3-8.2) g/dL Albumin 2.5 L (3.9-5) g/dL - Imaging Additional studies: R foot xray Assessment and Plan 51 yo F with Diabetic infection of right foot, osteomyelitis Pt currently stable Plan: 1. NPO p MN tonight 2. IVF - D5NS@125cc/hr. 3. strict glucose control 4. Recommend OR debridement - will add for tomorrow 5. vascular on board - art u/s pending. Plan for angio in am 6. Offloading 7. Continue empiric abx. ID consulted. Likely will need ad terminal makeup operator abx due to osteo. 8. Will obtain deep cultures of wound in OR 9. prn pain control 10. DVT ppx 11. Repeat CBC, BMP in am. Obtain HbA1C Discussed plan with patient and all questions answered. Thank you, please call with questions.
[2021-05-02] MEDS ORDERED: MORPHINE 2 MG/1 ML INJ IV PRN (17:51)
[2021-05-02] MEDS: D5W/0.9% NACL 1,000 ML IV SCH ×2 (18:17→21:16)
[2021-05-02] MEDS ORDERED: SODIUM CHLORIDE 0.9% 500 ML 500 ML IV ONE (19:00)
[2021-05-03] MEDS: PIPERACIL/TAZOBACTA 4.5/NS 100 4.5 GM/100 ML VIAL IV SCH ×2 (02:40→12:01)
[2021-05-03] MEDS: HEPARIN 5,000 UNIT/1 ML VIAL SUB-Q SCH ×3 (05:07→22:22)
[2021-05-03] MEDS: VANCOMYCIN 1,500 MG in SODIUM CHLORIDE 0.9% 500 ML 500 ML IV SCH (05:09)
[2021-05-03 05:16] LABS: Basophils % (Auto) 0.4 % (0.0-1.8); Eosinophils % (Auto) 0.5 % (0.0-4.3); Hematocrit 31.4 % (30.3-42.9); Hemoglobin 10.4 gm/dl (10.1-14.3); Lymphocytes # (Auto) 0.7 K/mm3 (1.2-5.4); Lymphocytes % (Auto) 11.4 % (13.4-35.0); Mean Corpuscular HGB Conc 33 % (30-34); Mean Corpuscular Volume 86 fl (79-97); Monocytes # (Auto) 0.6 K/mm3 (0.0-0.8); Monocytes % (Auto) 8.5 % (0.0-7.3); Platelet Count 175 K/mm3 (140-440); Red Blood Count 3.64 M/mm3 (3.65-5.03); Red Cell Distribution Width 14.5 % (13.2-15.2)
--- NOTE | 2021-05-03 08:30 | Event Note ---
Date: 05/03/21 Pt chart reviewed. Consent obtained for debridement today. VSS, afebrile. WBC remains within normal limits. Added for surgery today. Timing unknown due to OR staffing shortage today.
--- NOTE | 2021-05-03 08:35 | Progress Note ---
Assessment and Plan Assessment and plan: Sepsis. Present on admission. Patient meets criteria given the leukocytosis, tachycardia and diagnosis of osteomyelitis. Right great toe osteomyelitis. Right foot cellulitis Diabetic foot ulcer. Diabetes mellitus type 2, uncontrolled Acute kidney injury. Etiology likely secondary to sepsis/ATN +/-vasomotor nephropathy. PCOS. 05/01/2021. Continue IV antibiotics and follow-up blood cultures. ID consultation pending. Consider surgery consultation. 05/02/2021. Consult general surgery for further evaluation. Continue IV antibiotics and follow-up blood cultures. ID consultation pending. 05/03/2021. Surgery to perform OR debridement today. Vascular surgery also following. Follow-up arterial ultrasound. Continue empiric IV antibiotics. Await ID consultation. BG is well controlled with current regimen. History Interval history: No new issues overnight. Hospitalist Physical - Constitutional Vitals: Temp Pulse Resp BP Pulse Ox 98.3 F 80 18 106/51 94 05/03/21 05:01 05/03/21 05:01 05/03/21 05:01 05/03/21 05:01 05/03/21 05:01 General appearance: Present: mild distress (Right foot pain) - EENT Eyes: Present: PERRL, EOM intact ENT: hearing intact, clear oral mucosa, dentition normal - Neck Neck: Present: supple, normal ROM - Respiratory Respiratory effort: normal Respiratory: bilateral: CTA - Cardiovascular Rhythm: regular Heart Sounds: Present: S1 & S2. Absent: gallop, rub - Extremities Extremities: no ischemia, No edema, Full ROM - Abdominal General gastrointestinal: soft, non-tender, non-distended, normal bowel sounds - Integumentary Integumentary: Present: clear, warm, dry - Neurologic Neurologic: CNII-XII intact, moves all extremities Results - Labs CBC & Chem 7: 05/03/21 04:24 05/03/21 04:24 Labs: Laboratory Last Values WBC 6.5 K/mm3 (4.5-11.0) 05/03/21 04:24 RBC 3.64 M/mm3 (3.65-5.03) L 05/03/21 04:24 Hgb 10.4 gm/dl (10.1-14.3) 05/03/21 04:24 Hct 31.4 % (30.3-42.9) 05/03/21 04:24 MCV 86 fl (79-97) 05/03/21 04:24 MCH 29 pg (28-32) 05/03/21 04:24 MCHC 33 % (30-34) 05/03/21 04:24 RDW 14.5 % (13.2-15.2) 05/03/21 04:24 Plt Count 175 K/mm3 (140-440) 05/03/21 04:24 Lymph % (Auto) 11.4 % (13.4-35.0) L 05/03/21 04:24 [place] % (Auto) 8.5 % (0.0-7.3) H 05/03/21 04:24 Eos % (Auto) 0.5 % (0.0-4.3) 05/03/21 04:24 Baso % (Auto) 0.4 % (0.0-1.8) 05/03/21 04:24 Lymph # (Auto) 0.7 K/mm3 (1.2-5.4) L 05/03/21 04:24 [place] # (Auto) 0.6 K/mm3 (0.0-0.8) 05/03/21 04:24 Eos # (Auto) 0.0 K/mm3 (0.0-0.4) 05/03/21 04:24 Baso # (Auto) 0.0 K/mm3 (0.0-0.1) 05/03/21 04:24 Seg Neutrophils % 79.2 % (40.0-70.0) H 05/03/21 04:24 Seg Neutrophils # 5.2 K/mm3 (1.8-7.7) 05/03/21 04:24 ESR 33 mm/Hr (0-20) 04/30/21 21:59 Sodium 144 mmol/L (137-145) 05/03/21 04:24 Potassium 3.8 mmol/L (3.6-5.0) 05/03/21 04:24 Chloride 108.4 mmol/L (98-107) H 05/03/21 04:24 Carbon Dioxide 25 mmol/L (22-30) 05/03/21 04:24 Anion Gap 14 mmol/L 05/03/21 04:24 BUN 23 mg/dL (7-17) H 05/03/21 04:24 Creatinine 1.1 mg/dL (0.6-1.2) 05/03/21 04:24 Estimated GFR 53 ml/min 05/03/21 04:24 BUN/Creatinine Ratio 21 % 05/03/21 04:24 Glucose 102 mg/dL (65-100) H 05/03/21 04:24 POC Glucose 87 mg/dL (70-105) 05/03/21 07:56 Hemoglobin A1c 9.6 % (4-6) H 05/03/21 04:24 Lactic Acid 1.90 mmol/L (0.7-2.0) 05/01/21 03:19 Calcium 7.0 mg/dL (8.4-10.2) L 05/03/21 04:24 Total Bilirubin 1.60 mg/dL (0.1-1.2) H 05/02/21 05:33 AST 30 units/L (5-40) 05/02/21 05:33 ALT 31 units/L (7-56) 05/02/21 05:33 Alkaline Phosphatase 438 units/L (35-129) H 05/02/21 05:33 Total Protein 5.8 g/dL (6.3-8.2) L 05/02/21 05:33 Albumin 2.5 g/dL (3.9-5) L 05/02/21 05:33 Albumin/Globulin Ratio 0.8 % 05/02/21 05:33 Urine Color Tia (Yellow) 05/01/21 Unknown Urine Turbidity Slightly-cloudy (Clear) 05/01/21 Unknown Urine pH 5.0 (5.0-7.0) 05/01/21 Unknown Ur Specific [place] 1.018 (1.003-1.030) 05/01/21 Unknown Urine Protein <15 mg/dl mg/dL (Negative) 05/01/21 Unknown Urine Glucose (UA) Neg mg/dL (Negative) 05/01/21 Unknown Urine Ketones Neg mg/dL (Negative) 05/01/21 Unknown Urine Blood Neg (Negative) 05/01/21 Unknown Urine Nitrite Neg (Negative) 05/01/21 Unknown Urine Bilirubin Neg (Negative) 05/01/21 Unknown Urine Urobilinogen 4.0 mg/dL (<2.0) 05/01/21 Unknown Ur Leukocyte Esterase Neg (Negative) 05/01/21 Unknown Urine WBC (Auto) 6.0 /HPF (0.0-6.0) 05/01/21 Unknown Urine RBC (Auto) 4.0 /HPF (0.0-6.0) 05/01/21 Unknown U Epithel Cells (Auto) 4.0 /HPF (0-13.0) 05/01/21 Unknown Urine Bacteria (Auto) 1+ /HPF (Negative) 05/01/21 Unknown Urine Mucus Few /HPF 05/01/21 Unknown Blood Type O POSITIVE 05/01/21 03:25 Antibody Screen Negative 05/01/21 03:25 Microbiology: Microbiology 05/01/21 02:04 Peripheral/Venous Blood Culture - Preliminary NO GROWTH AFTER 48 HOURS 05/01/21 01:45 Peripheral/Venous Blood Culture - Preliminary NO GROWTH AFTER 48 HOURS 05/01/21 Unknown Wound - Deep Wound Culture - Preliminary Sales/IV: Voiding Method Toilet Active Medications - Current Medications Current Medications: Generic Name Dose Route Start Last Admin Trade Name Freq PRN Reason Stop Dose Admin Acetaminophen 650 mg 05/01/21 02:30 05/01/21 13:01 Acetaminophen 325 Mg Tab PO 650 mg Q4H PRN Administration Pain MILD(1-3)/Fever >100.5/MORALES Hydrocodone Bitart/Acetaminophen 2 each 05/01/21 02:30 05/02/21 18:20 Hydrocodone/Acetaminophen 5-325 Mg Tab PO 2 each Q6H PRN Administration Pain, Moderate (4-6) Heparin Sodium (Porcine) 5,000 unit 05/01/21 06:00 05/03/21 05:07 Heparin 5,000 Unit/1 Ml Vial SUB-Q Not Given Q8HR MARI Vancomycin HCl 1,500 mg/ 530 mls @ 333.333 mls/hr 05/02/21 06:00 05/03/21 05:09 Sodium Chloride IV 333.333 mls/hr Q24H MARI Administration Piperacillin Sod/Tazobactam Sod 4.5 gm in 100 mls @ 200 mls/hr 05/01/21 10:00 05/03/21 02:40 Zosyn/Ns 4.5gm/100ml IV 200 mls/hr Q8H MARI Administration Protocol Dextrose/Sodium Chloride 1,000 mls @ 125 mls/hr 05/02/21 18:30 05/02/21 21:16 D5ns IV 125 mls/hr DIRECT MARI Administration Ibuprofen 600 mg 05/01/21 02:30 Ibuprofen 600 Mg Tab PO Q6H PRN Pain, Mild (1-3) Insulin Human Regular 0 units 05/01/21 17:30 05/02/21 21:55 Insulin Regular, Human 100 Units/1 Ml SUB-Q Not Given ACHS [facility] Protocol Morphine Sulfate 2 mg 05/02/21 17:51 Morphine 2 Mg/1 Ml Inj IV Q4H PRN Pain , Severe (7-10) Ondansetron HCl 4 mg 05/01/21 02:30 05/02/21 06:25 Ondansetron 4 Mg/2 Ml Inj IV 4 mg Q8H PRN Administration Nausea And Vomiting Senna 8.6 mg 05/01/21 02:30 Sennosides 8.6 Mg Tab PO Q12HR PRN Constipation Sodium Chloride 10 ml 05/01/21 10:00 05/02/21 21:17 Sodium Chloride 0.9% 10 Ml Flush Syringe IV 10 ml BID MARI Administration
[2021-05-03] MEDS: INSULIN REGULAR, HUMAN 100 UNITS/1 ML SUB-Q SCH ×4 (09:08→22:00)
[2021-05-03] MEDS ORDERED: HEPARIN 10,000 UNITS/10 ML VIAL ONE (09:46)
[2021-05-03] MEDS ORDERED: HEPARIN/NS 5000 UNIT/500ML 1,000 ML IR ONE (09:46)
[2021-05-03] MEDS ORDERED: ceFAZolin/Water 2 GM/20 ML 2 GM/20 ML SYRINGE IV ONE (10:12)
[2021-05-03] MEDS: MIDAZOLAM 2 MG/2 ML INJ ONE ×2 (10:34→10:40)
[2021-05-03] MEDS: fentaNYL 100 MCG/2 ML INJ ONE ×2 (10:34→10:40)
[2021-05-03] MEDS: LIDOCAINE (2%) 20 MG/1 ML VIAL 20 ML MDV INFILTRATI ONE ×2 (10:35→10:39)
--- NOTE | 2021-05-03 11:52 | Operative Report ---
Operative Report Operative Report: EXAM: 1. Ultrasound-guided access of the left common femoral artery. 2. Angiography of the left lower extremity. 3. Selection of the abdominal aorta with angiography. 4. Selection of the right external iliac artery, superficial femoral artery, and popliteal artery with angiography of the right lower extremity. 5. Closure of the left common femoral artery arteriotomy with 6 [place] Angio- Seal DATE: 05/03/2021 LUMBER CHECKER: MYRIAM ROONEY MD INDICATION: Peripheral vascular disease with diabetic ulceration of the right lower extremity with abnormal pulse exam. MEDICATIONS: Please see nursing report for full details. DEVICES: None CONTRAST: Please see catheter report for full details. PROCEDURE: The risks, benefits, and alternatives were discussed with the patient; written informed consent was obtained. The patient was brought to the angiography suite in stable condition. Her groins were prepped and draped in a sterile fashion. Ultrasound was used to identify the left common femoral artery. The left common femoral artery was patent. Under direct ultrasound guidance, the left common f emoral artery was accessed with a 21-gauge micropuncture needle. 0.018 inch wire was passed into the aorta. Needle was exchanged for transitional dilator. Wire was exchanged for 0.035 inch wire. Transitional dilator was exchanged for a 5 [place] sheath. Digital subtraction angiography was performed demonstrating an appropriate puncture, above the bifurcation and below the inferior epigastric artery. The abdominal aorta was selected and digital subtraction angiography was performed. The right external iliac artery, superficial femoral artery, and popliteal artery were selected and digital subtraction angiography was performed. After reviewing the diagnostic angiogram of the bilateral lower extremities, I determined the patient did not require endovascular revascularization. All wires, catheters, and sheaths were retracted to the left external iliac artery and exchanged for a 6 [place] Angio-Seal. Angio-Seal was then successfully deployed achieving immediate hemostasis. There is a palpable left common femoral artery after closure and a palpable left dorsalis pedis artery after closure. FINDINGS: Abdominal aorta: The infrarenal abdominal aorta is patent. Right lower extremity: The right common iliac artery, internal iliac artery, and external iliac artery are patent. The right common femoral artery is patent, but short with a high bifurcation. The profunda femoral artery is patent. The superficial femoral artery is patent. There is a normal three-vessel runoff to the ankle with dominant flow to the posterior tibial artery. The anterior tibial artery, tibioperoneal trunk, peroneal artery, and posterior tibial artery are patent. The dorsalis pedis is diminutive compared to the common plantar artery, medial plantar artery, and lateral plantar artery which are dominant. Left lower extremity: The left common iliac artery, internal iliac artery, and external iliac artery are patent. The left common femoral artery is patent, but short with a high bifurcation. The profunda femoral artery is patent. The superficial femoral artery is patent. There is a normal three-vessel runoff to the ankle with dominant flow to the posterior tibial artery. The anterior tibial artery, tibioperoneal trunk, peroneal artery, and posterior tibial artery are patent. The pedal flow was not imaged. IMPRESSION: Successful third order selection of the right lower extremity with angiography of the bilateral lower extremities Successful ultrasound-guided access of left common femoral artery with Angio- Seal assisted closure
[2021-05-03] MEDS: D5W/0.9% NACL 1,000 ML IV SCH (12:15)
[2021-05-03] MEDS ORDERED: propofoL 200 MG/20 ML VIAL IV ONE ×3 (12:23→13:12)
[2021-05-03] MEDS ORDERED: fentaNYL 100 MCG/2 ML INJ ONE (12:23)
[2021-05-03] MEDS ORDERED: MIDAZOLAM 5 MG/5 ML INJ MDV IV ONE (12:23)
[2021-05-03] MEDS ORDERED: BUPIVACAINE/PF (0.5%) 5 MG/1 ML 30 ML VIAL INFILTRATI ONE (12:43)
[2021-05-03] MEDS ORDERED: LIDOCAINE MPF (2%) 20 MG/1 ML VIAL 5 ML ONE (13:00)
[2021-05-03] MEDS ORDERED: SODIUM HYPOCHLORITE, DAKIN'S FULL STRENGTH (0.5%) 473 ML TOPICAL SOLN ONE (13:09)
[2021-05-03] MEDS ORDERED: SODIUM HYPOCHLORITE, DAKIN'S FULL STRENGTH (0.5%) 473 ML TOPICAL SOLN IR ONE (13:13)
[2021-05-03] MEDS ORDERED: SODIUM CHLORIDE 0.9% IRR 1,500 ML BOTTLE IR ONE ×2 (13:13)
--- NOTE | 2021-05-03 13:35 | Post Operative Note ---
Date of procedure: 05/03/21 Pre-op diagnosis: infected diabetic foot wound RIGHT Post-op diagnosis: same Findings: 10.5cmx3.5cm x2cm wound Procedure: Excisional debridement of right foot wound Anesthesia: MAC, local Surgeon: BERENICE WILLIAM Estimated blood loss: minimal Pathology: list (wound cultures) Specimen disposition: to lab Condition: stable Disposition: PACU
--- NOTE | 2021-05-03 15:03 | Consultation ---
History of Present Illness - Reason for Consult Consult date: 05/03/21 - History of Present Illness 51-year-old female past medical history diabetes, right great toe ulcer presented to hospital complaining of right foot pain. She notes having trauma to the right great toe, and subsequently had foot pain and discoloration. Started about 2 weeks prior to admission. She was taken to the OR today for excisional debridement of the right foot wound and angiography. Febrile to 100.9 white count 13.2. Wound culture with gram-positive cocci and gram-negative rods. Imaging personally reviewed: Toe x-ray: Osteomyelitis with soft tissue gas right great toe to midfoot. Review of Systems: Bold if positive, otherwise negative General: fevers, chills, rigors HEENT: visual disturbance, diplopia, eye pain Respiratory: cough, sputum, hemoptysis, shortness of breath Cardiovascular: chest pain, syncope Gastrointestinal: nausea, vomiting, diarrhea, abdominal pain Genitourinary: dysuria, hematuria, flank pain Musculoskeletal: neck pain, back pain, joint pain, edema Neurologic: headaches, seizures Hematologic: easy bruising or bleeding Endocrine: night sweats, acute weight loss Skin: rash, jaundice, redness Psychiatric: suicidal, homicidal ideation Past History Past Medical History: diabetes, other (right great toe diabetic ulcer) Past Surgical History: No surgical history Social history: no significant social history, lives with family Family history: diabetes Medications and Allergies Allergies Allergy/AdvReac Type Severity Reaction Status Date / Time No Known Allergies Allergy Unverified 04/30/21 18:32 Home Medications Medication Instructions Recorded Confirmed Last Taken Type Gabapentin [Neurontin] 900 mg PO DAILY PRN 05/01/21 05/01/21 Unknown History glipiZIDE [Glucotrol] 10 mg PO BID 05/01/21 05/01/21 04/30/21 22:00 History Active Meds: Active Medications Acetaminophen (Acetaminophen 325 Mg Tab) 650 mg PO Q4H PRN PRN Reason: Pain MILD(1-3)/Fever >100.5/MORALES Last Admin: 05/01/21 13:01 Dose: 650 mg Documented by: Hydrocodone Bitart/Acetaminophen (Hydrocodone/Acetaminophen 5-325 Mg Tab) 2 each PO Q6H PRN PRN Reason: Pain, Moderate (4-6) Last Admin: 05/02/21 18:20 Dose: 2 each Documented by: Heparin Sodium (Porcine) (Heparin 5,000 Unit/1 Ml Vial) 5,000 unit SUB-Q Q8HR [facility] Last Admin: 05/03/21 05:07 Dose: Not Given Documented by: Vancomycin HCl 1,500 mg/ (Sodium Chloride) 530 mls @ 333.333 mls/hr IV Q24H [facility] Last Admin: 05/03/21 05:09 Dose: 333.333 mls/hr Documented by: Piperacillin Sod/Tazobactam Sod (Zosyn/Ns 4.5gm/100ml) 4.5 gm in 100 mls @ 200 mls/hr IV Q8H [facility]; Protocol Last Admin: 05/03/21 12:01 Dose: 200 mls/hr Documented by: Dextrose/Sodium Chloride (D5ns) 1,000 mls @ 125 mls/hr IV DIRECT [facility] Last Admin: 05/03/21 12:15 Dose: 125 mls/hr Documented by: Ibuprofen (Ibuprofen 600 Mg Tab) 600 mg PO Q6H PRN PRN Reason: Pain, Mild (1-3) Insulin Human Regular (Insulin Regular, Human 100 Units/1 Ml) 0 units SUB-Q ACHS [facility]; Protocol Last Admin: 05/03/21 11:58 Dose: Not Given Documented by: Morphine Sulfate (Morphine 2 Mg/1 Ml Inj) 2 mg IV Q4H PRN PRN Reason: Pain , Severe (7-10) Ondansetron HCl (Ondansetron 4 Mg/2 Ml Inj) 4 mg IV Q8H PRN PRN Reason: Nausea And Vomiting Last Admin: 05/02/21 06:25 Dose: 4 mg Documented by: Senna (Sennosides 8.6 Mg Tab) 8.6 mg PO Q12HR PRN PRN Reason: Constipation Sodium Chloride (Sodium Chloride 0.9% 10 Ml Flush Syringe) 10 ml IV BID [facility] Last Admin: 05/03/21 12:01 Dose: 10 ml Documented by: Sodium Hypochlorite (Sodium Hypochlorite, Dakin's 1/2 Strength (0.25%) 473 Ml Topical Soln) 1 applic TP Q12H PRN PRN Reason: Wound Care Physical Examination - Physical Exam Narrative exam: Physical Exam: Constitutional: Alert, cooperative. No acute distress Head, Ears, Nose: Normocephalic, atraumatic. External ears, nose normal Eyes: Conjunctivae/corneas clear. No icterus. No ptosis. Neck: Supple, no meningeal signs Oral: dentition fair, no thrush Cardiovascular: S1, S2 normal. Respiratory: Good air entry, clear to auscultation bilaterally GI: Soft, non-tender; bowel sounds normal. No peritoneal signs. Musculoskeletal: Right foot dressed postoperatively Skin: No rash or abscess Hem/Lymphatic: No palpable cervical or supraclavicular nodes. No lymphangitis Psych: Mood ok. Affect normal Neurological: Awake, alert, oriented. No gross abnormality - Constitutional Vitals: Vital Signs Temp Pulse Resp BP Pulse Ox 98.3 F 82 16 127/60 96 05/03/21 05:01 05/03/21 12:09 05/03/21 12:09 05/03/21 12:09 05/03/21 12:09 Temperature -Last 24 Hours Temperature 98.3 F Temperature 98.2 F Temperature 98.4 F Temperature 99.4 F Results - Labs CBC & Chem 7: 05/03/21 04:24 05/03/21 04:24 Labs: Abnormal lab results 05/02/21 05/03/21 05/03/21 Range/Units 21:30 04:24 04:24 RBC 3.64 L (3.65-5.03) M/mm3 Lymph % (Auto) 11.4 L (13.4-35.0) % [place] % (Auto) 8.5 H (0.0-7.3) % Lymph # (Auto) 0.7 L (1.2-5.4) K/mm3 Seg Neutrophils % 79.2 H (40.0-70.0) % Chloride 108.4 H (98-107) mmol/L BUN 23 H (7-17) mg/dL Glucose 102 H (65-100) mg/dL POC Glucose 114 H (70-105) mg/dL Hemoglobin A1c (4-6) % Calcium 7.0 L (8.4-10.2) mg/dL 05/03/21 Range/Units 04:24 RBC (3.65-5.03) M/mm3 Lymph % (Auto) (13.4-35.0) % [place] % (Auto) (0.0-7.3) % Lymph # (Auto) (1.2-5.4) K/mm3 Seg Neutrophils % (40.0-70.0) % Chloride (98-107) mmol/L BUN (7-17) mg/dL Glucose (65-100) mg/dL POC Glucose (70-105) mg/dL Hemoglobin A1c 9.6 H (4-6) % Calcium (8.4-10.2) mg/dL Assessment and Plan Cultures: Blood culture no growth so far. Wound culture GPC, GNR A/P: 51 yo F PMHx DM2 now with right foot ostoemyelitis. #Acute sepsis: with fevers and leukocytosis #Right foot osteomyelitis: s/p debridement. Will plan on 6 weeks antibiotics. Has had angiography as well. No guarantees medical therapy will be successful, ongoing risk of amputation. #Diabetes: tight glycemic control for best outcomes. Recs: -Continue vancomycin goal trough 10-20 -Stop Zosyn -Start ceftriaxone -Follow cultures Thank you for the consult, we will continue to follow. MD Kathrine Sifuentes [facility] O: [phone] F: [phone]
--- NOTE | 2021-05-03 15:14 | Anesthesia Day of Surgery ---
Anesthesia Day of Surgery - Day of Surgery Patient Examined: Yes Patient H&P Reviewed: Yes Patient is NPO: Yes
--- NOTE | 2021-05-03 15:14 | Post Anesthesia Evaluation ---
- Post Anesthesia Evaluation Patient Participated: Yes Airway Patent: Yes Stable Respiratory Function: Yes Nausea/Vomiting: No Temp > 96.8F: Yes Pain Manageable: Yes Adequeate Hydration: Yes Anesthesia Complications: No Block Receding Appropriately: Not Applicable Patient on Ventilator: No
--- NOTE | 2021-05-03 15:27 | Anesthesia Consultation ---
Anesthesia Consult and Med Hx Date of service: 05/03/21 - Airway Anesthetic Teeth Evaluation: Good ROM Head & Neck: Adequate Mental/Hyoid Distance: Adequate Mallampati Class: Class II Intubation Access Assessment: Good - Pre-Operative Health Status ASA Pre-Surgery Classification: ASA3 Proposed Anesthetic Plan: MAC (GA if needed) - Endocrine Hx Renal Disease: Yes (Had prerenal azotemia and now improved) Hx Non-Insulin Dependent Diabetes: Yes (Poorly controlled-9.6) - Other Systems Hx Obesity: Yes (Albumin 2.5) - Additional Comments Anesthesia Medical History Comments: PCOS
--- NOTE | 2021-05-03 15:39 | XRay Report ---
CHEST 1 VIEW INDICATION: hyperbaric oxygen therapy candidate. COMPARISON: None FINDINGS: Support devices: None. Heart: Within normal limits. Lungs/Pleura: No acute air space or interstitial disease. Additional findings: None. IMPRESSION: No acute findings. Signer Name: Claude Foster Jr, MD Signed: 05/03/2021 3:34 PM Workstation Name: [id number]
[2021-05-03] MEDS: cefTRIAXone/NS 2 GM/100 ML 2 GM/100 ML BAG IV SCH (16:20)
--- NOTE | 2021-05-03 16:22 | Vascular Lab Report ---
DUPLEX DOPPLER LOWER EXTREMITY VEINS, RIGHT INDICATION: swelling RLE. TECHNIQUE: Duplex doppler imaging was performed through the veins of the right lower extremity using venous comp ression and other maneuvers. COMPARISON: None available. FINDINGS: Common Femoral vein: Negative. Superficial Femoral vein: Negative. Popliteal vein: Negative. Calf veins: Negative. Additional findings: None. IMPRESSION: 1. No sonographic evidence for DVT in the right lower extremity. Signer Name: Maribeth Rodrigues MD Signed: 05/03/2021 4:17 PM Workstation Name: [id number]
[2021-05-03] MEDS: HYDROcodone/ACETAMINOPHEN 5-325 MG TAB PO PRN (22:23)
[2021-05-04] MEDS: VANCOMYCIN 1,500 MG in SODIUM CHLORIDE 0.9% 500 ML 500 ML IV SCH (06:45)
[2021-05-04] MEDS: HEPARIN 5,000 UNIT/1 ML VIAL SUB-Q SCH ×3 (06:49→22:16)
[2021-05-04] MEDS ORDERED: SODIUM HYPOCHLORITE, DAKIN'S 1/2 STRENGTH (0.25%) 473 ML TOPICAL SOLN TP PRN (07:00)
--- NOTE | 2021-05-04 07:54 | Operative Report ---
Operative Report Operative Report: Date: 05/03/21 13:31 Date of procedure: 05/03/21 Pre-op diagnosis: infected diabetic foot wound RIGHT Post-op diagnosis: same Findings: 10.5cmx3.5cm x2cm wound Procedure: Excisional debridement of right foot wound Anesthesia: MAC, local Surgeon: BERENICE WILLIAM Estimated blood loss: minimal Pathology: list (wound cultures) Specimen disposition: to lab Condition: stable Disposition: PACU HPI and indication: Patient is a 51-year-old female with poorly controlled diabetes who presented to the emergency room with 2 to 3-week history of developing right foot infection. The patient states that she injured the nail on her great toe and then started to experience swelling, redness, pain of the right foot. She states that her friend noticed that the skin on the bottom of her foot was becoming discolored and black and there was drainage and therefore brought her to the hospital. In the emergency room an x-ray was performed which showed osteomyelitis of the right great toe along with subcutaneous gas concerning for infection. It was recommended that the patient undergo debridement of the wound. She underwent vascular work-up which essentially revealed patent arterial supply to the foot. All risk, benefits, alternatives to surgical debridement were discussed with the patient questions answered. Consent obtained. Patient also alerted to the possibility that she may require amputation in the future. Procedure in detail: Patient was identified in the preoperative area, taken back to the operating room and placed on the operating room table in supine position. The right foot was marked. The dressing was removed and the foot was prepped and draped in usual sterile fashion and a timeout performed. After anesthesia was induced and excisional debridement was undertaken. Necrotic skin, subcutaneous tissue was dissected using a combination of sharp dissection with forceps and scalpel and ultrasonic dissection with the Genabilityus machine. Dissection was carried down to the bone. Tendon was exposed. Deep wound cultures were obtained. Callus around the right great toe was excised using a scalpel and a 0.5 cm opening in the dorsal aspect of the great toe was unroofed. This connected to the remainder of the wound. There was evidence of bony destruction of the entire first phalanx. The metatarsal head was exposed on the dorsal aspect of the foot without any gross evidence of bony destruction. Once all necrotic tissue was debrided, hemostasis was very carefully ensured. There was pinpoint bleeding from the subcutaneous tissue at the wound edges. A digital nerve block was performed and local anesthetic was infiltrated into the wound edges. The wound was packed with 1 piece of Dakin's moistened Kerlix. This was covered with 4 x 4 gauze, ABD pad, and wrapped with Kerlix. At the end of the case, all sponge, instrument, sharp counts were correct x2. The patient was awoken from anesthesia and taken to PACU in stable condition.
[2021-05-04] MEDS: INSULIN REGULAR, HUMAN 100 UNITS/1 ML SUB-Q SCH ×4 (08:05→22:19)
[2021-05-04] MEDS: HYDROcodone/ACETAMINOPHEN 5-325 MG TAB PO PRN (12:07)
--- NOTE | 2021-05-04 12:14 | Progress Note ---
Assessment and Plan 51 yo F s/p excisional debridement of infected, necrotic right foot diabetic wound, POD 1 1. Diabetic infection of right foot 2. osteomyelitis 3. sepsis 2/2 #1 and #2 Pt currently stable. Plan: 1. Consistent carb diet 2. gentle IVF 3. strict glucose control 4. Offloading. PT consult 5. Continue empiric abx. ID consulted. Likely will need culinary intern abx due to osteo. 6. follow up cultures 7. prn pain control 9. DVT ppx 10. Consult to Dr. Evans to evaluate for great toe amp Discussed plan with patient and all questions answered. Discussed with Dr. Berrios Patient's mother stated that after dc patient will be staying with her. She lives close to [facility] which has an associated wound care center and HBOT services. Thank you, please call with questions. Subjective Date of service: 05/04/21 Narrative: Pt seen and examined. Afebrile. States she feels throbbing pain in her right foot which is well controlled with pain medications. No n/v. Objective Vital Signs - 12hr 05/04/21 05/04/21 03:43 07:42 Temperature 97.7 F 98.7 F Pulse Rate 67 73 Respiratory 18 18 Rate Blood Pressure 100/61 115/64 O2 Sat by Pulse 96 97 Oximetry - General physical appearance Narrative Exam: Gen: AAox3. NAD CV: s1, S2+ Resp: even and unlabored Ext: R foot wound dressing and one piece of kerlix packing removed. Wound bed without significant drainage or odor. Purple discoloration of great toe. Tendon and bone exposed in wound bed. Cleansed and packed with one piece of dakins moistened gauze, covered with dry gauze, ABD pad and wrapped with kerlix. - Labs 05/03/21 04:24 05/03/21 04:24
--- NOTE | 2021-05-04 13:27 | Progress Note ---
Assessment and Plan Cultures: Blood culture no growth so far. Wound culture GPC, GNR A/P: 51 yo F PMHx DM2 now with right foot ostoemyelitis. #Acute sepsis: with fevers and leukocytosis #Right foot osteomyelitis: s/p debridement. Will plan on 6 weeks antibiotics. Has had angiography as well. No guarantees medical therapy will be successful, ongoing risk of amputation. #Diabetes: tight glycemic control for best outcomes. Recs: -Continue vancomycin goal trough 10-20 -Continue ceftriaxone -Follow cultures; will consult case management for culture directed home antibiotics when finalized. Thank you for the consult, we will continue to follow. Deanna Spangler MD [facility] ([facility]) O: [phone] F: [phone] Subjective Date of service: 05/04/21 Interval history: Afebrile, normal white count. Culture still pending. She was taken to the OR today for excisional debridement Imaging personally reviewed: Chest x-ray: No acute findings. Objective - Exam Narrative Exam: Physical Exam: Constitutional: Alert, cooperative. No acute distress Head, Ears, Nose: Normocephalic, atraumatic. External ears, nose normal Eyes: Conjunctivae/corneas clear. No icterus. No ptosis. Neck: Supple, no meningeal signs Oral: dentition fair, no thrush Cardiovascular: S1, S2 normal. Respiratory: Good air entry, clear to auscultation bilaterally GI: Soft, non-tender; bowel sounds normal. No peritoneal signs. Musculoskeletal: Right foot dressed postoperatively Skin: No rash or abscess Hem/Lymphatic: No palpable cervical or supraclavicular nodes. No lymphangitis Psych: Mood ok. Affect normal Neurological: Awake, alert, oriented. No gross abnormality - Constitutional Vitals: Vital Signs Temp Pulse Resp BP Pulse Ox 98.7 F 73 18 115/64 92 05/04/21 07:42 05/04/21 07:42 05/04/21 12:00 05/04/21 07:42 05/04/21 12:00 Temperature -Last 24 Hours Temperature 98.7 F Temperature 97.7 F Temperature 98.1 F Temperature 97.8 F Temperature 98.0 F Temperature 978 F Temperature 97.2 F - Labs CBC & Chem 7: 05/03/21 04:24 05/03/21 04:24 Labs: Abnormal lab results 05/03/21 05/03/21 05/04/21 Range/Units 17:22 21:01 11:52 POC Glucose 116 H 134 H 117 H (70-105) mg/dL
[2021-05-04] MEDS: cefTRIAXone/NS 2 GM/100 ML 2 GM/100 ML BAG IV SCH (17:01)
--- NOTE | 2021-05-04 17:51 | Progress Note ---
Assessment and Plan Assessment and plan: # Sepsis. - Present on admission. Patient meets criteria given the leukocytosis, tachycardia and diagnosis of osteomyelitis. - now resolved, vss - wbc count improving, 13.5 on admission now 6.5. Wound culture demonstrates GPC and GNR. - Blood cultures no growth to date -IV vancomycin, IV ceftriaxone Infectious disease following # Right great toe osteomyelitis. XR foot 04/30/2021: Osteomyelitis with extensive soft tissue infection Management as above Infectious disease and general surgery following # Status post debridement by general surgery Plan for amputation evaluation per discussion with general surgery this morning # Right foot cellulitis Management as above # Diabetic foot ulcer. Management as above # Diabetes mellitus type 2, uncontrolled - accuchecks ac/hs - SSI # Acute kidney injury. (Resolved) - Etiology likely secondary to sepsis/ATN +/-vasomotor nephropathy. -Creatinine now at baseline Avoid nephrotoxic agents # PCOS Chronic #DVT prophylaxis Heparin 5000 units subcu every 8 hour Hospital course to date: 05/01/2021. Continue IV antibiotics and follow-up blood cultures. ID consultation pending. Consider surgery consultation. 05/02/2021. Consult general surgery for further evaluation. Continue IV antibiotics and follow-up blood cultures. ID consultation pending. 05/03/2021. Surgery to perform OR debridement today. Vascular surgery also following. Follow-up arterial ultrasound. Continue empiric IV antibiotics. Await ID consultation. BG is well controlled with current regimen. 05/04/2021: s/p debridement yesterday with gen surgery. D/w Dr. Lee who states that patient needs evaluation for great toe amputation. Dr. Evans will be consulted to evaluate. Physical therapy consulted for heel offloading and gait t raining. History Interval history: No acute complaints on encounter. Right front tender to palpation. Hospitalist Physical - Physical exam Narrative exam: Physical Exam: Constitutional: Alert, cooperative. No acute distress Head, Ears, Nose: Normocephalic, atraumatic. External ears, nose normal Eyes: Conjunctivae/corneas clear. No icterus. No ptosis. Neck: Supple, no meningeal signs Oral: dentition fair, no thrush Cardiovascular: S1, S2 normal. Respiratory: Good air entry, clear to auscultation bilaterally GI: Soft, non-tender; bowel sounds normal. No peritoneal signs. Musculoskeletal: No pedal edema, no cyanosis. Skin: No rash or abscess Extremity: Right foot wound dressing removed at bedside. No drainage or odor noted. Large wound with bone exposed noted. General surgery at bedside to pack with gauze and wrapped with Kerlix. Hem/Lymphatic: No palpable cervical or supraclavicular nodes. No lymphangitis Psych: Mood ok. Affect normal Neurological: Awake, alert, oriented. No gross abnormality - Constitutional Vitals: Temp Pulse Resp BP Pulse Ox 98.7 F 73 18 115/64 92 05/04/21 07:42 05/04/21 07:42 05/04/21 12:00 05/04/21 07:42 05/04/21 12:00 General appearance: Present: mild distress (Right foot pain) Results - Labs CBC & Chem 7: 05/03/21 04:24 05/03/21 04:24 Labs: Laboratory Last Values WBC 6.5 K/mm3 (4.5-11.0) 05/03/21 04:24 RBC 3.64 M/mm3 (3.65-5.03) L 05/03/21 04:24 Hgb 10.4 gm/dl (10.1-14.3) 05/03/21 04:24 Hct 31.4 % (30.3-42.9) 05/03/21 04:24 MCV 86 fl (79-97) 05/03/21 04:24 MCH 29 pg (28-32) 05/03/21 04:24 MCHC 33 % (30-34) 05/03/21 04:24 RDW 14.5 % (13.2-15.2) 05/03/21 04:24 Plt Count 175 K/mm3 (140-440) 05/03/21 04:24 Lymph % (Auto) 11.4 % (13.4-35.0) L 05/03/21 04:24 [place] % (Auto) 8.5 % (0.0-7.3) H 05/03/21 04:24 Eos % (Auto) 0.5 % (0.0-4.3) 05/03/21 04:24 Baso % (Auto) 0.4 % (0.0-1.8) 05/03/21 04:24 Lymph # (Auto) 0.7 K/mm3 (1.2-5.4) L 05/03/21 04:24 [place] # (Auto) 0.6 K/mm3 (0.0-0.8) 05/03/21 04:24 Eos # (Auto) 0.0 K/mm3 (0.0-0.4) 05/03/21 04:24 Baso # (Auto) 0.0 K/mm3 (0.0-0.1) 05/03/21 04:24 Seg Neutrophils % 79.2 % (40.0-70.0) H 05/03/21 04:24 Seg Neutrophils # 5.2 K/mm3 (1.8-7.7) 05/03/21 04:24 ESR 33 mm/Hr (0-20) 04/30/21 21:59 Sodium 144 mmol/L (137-145) 05/03/21 04:24 Potassium 3.8 mmol/L (3.6-5.0) 05/03/21 04:24 Chloride 108.4 mmol/L (98-107) H 05/03/21 04:24 Carbon Dioxide 25 mmol/L (22-30) 05/03/21 04:24 Anion Gap 14 mmol/L 05/03/21 04:24 BUN 23 mg/dL (7-17) H 05/03/21 04:24 Creatinine 1.1 mg/dL (0.6-1.2) 05/03/21 04:24 Estimated GFR 53 ml/min 05/03/21 04:24 BUN/Creatinine Ratio 21 % 05/03/21 04:24 Glucose 102 mg/dL (65-100) H 05/03/21 04:24 POC Glucose 144 mg/dL (70-105) H 05/04/21 17:23 Hemoglobin A1c 9.6 % (4-6) H 05/03/21 04:24 Lactic Acid 1.90 mmol/L (0.7-2.0) 05/01/21 03:19 Calcium 7.0 mg/dL (8.4-10.2) L 05/03/21 04:24 Total Bilirubin 1.60 mg/dL (0.1-1.2) H 05/02/21 05:33 AST 30 units/L (5-40) 05/02/21 05:33 ALT 31 units/L (7-56) 05/02/21 05:33 Alkaline Phosphatase 438 units/L (35-129) H 05/02/21 05:33 Total Protein 5.8 g/dL (6.3-8.2) L 05/02/21 05:33 Albumin 2.5 g/dL (3.9-5) L 05/02/21 05:33 Albumin/Globulin Ratio 0.8 % 05/02/21 05:33 Urine Color Tia (Yellow) 05/01/21 Unknown Urine Turbidity Slightly-cloudy (Clear) 05/01/21 Unknown Urine pH 5.0 (5.0-7.0) 05/01/21 Unknown Ur Specific [place] 1.018 (1.003-1.030) 05/01/21 Unknown Urine Protein <15 mg/dl mg/dL (Negative) 05/01/21 Unknown Urine Glucose (UA) Neg mg/dL (Negative) 05/01/21 Unknown Urine Ketones Neg mg/dL (Negative) 05/01/21 Unknown Urine Blood Neg (Negative) 05/01/21 Unknown Urine Nitrite Neg (Negative) 05/01/21 Unknown Urine Bilirubin Neg (Negative) 05/01/21 Unknown Urine Urobilinogen 4.0 mg/dL (<2.0) 05/01/21 Unknown Ur Leukocyte Esterase Neg (Negative) 05/01/21 Unknown Urine WBC (Auto) 6.0 /HPF (0.0-6.0) 05/01/21 Unknown Urine RBC (Auto) 4.0 /HPF (0.0-6.0) 05/01/21 Unknown U Epithel Cells (Auto) 4.0 /HPF (0-13.0) 05/01/21 Unknown Urine Bacteria (Auto) 1+ /HPF (Negative) 05/01/21 Unknown Urine Mucus Few /HPF 05/01/21 Unknown Vancomycin Trough 16.7 ug/mL (5.0-20.0) 05/04/21 15:25 Blood Type O POSITIVE 05/01/21 03:25 Antibody Screen Negative 05/01/21 03:25 Microbiology: Microbiology 05/01/21 02:04 Peripheral/Venous Blood Culture - Preliminary NO GROWTH AFTER 72 HOURS 05/01/21 01:45 Peripheral/Venous Blood Culture - Preliminary NO GROWTH AFTER 72 HOURS Sales/IV: Voiding Method Toilet Active Medications - Current Medications Current Medications: Generic Name Dose Route Start Last Admin Trade Name Freq PRN Reason Stop Dose Admin Acetaminophen 650 mg 05/01/21 02:30 05/01/21 13:01 Acetaminophen 325 Mg Tab PO 650 mg Q4H PRN Administration Pain MILD(1-3)/Fever >100.5/MROALES Hydrocodone Bitart/Acetaminophen 2 each 05/01/21 02:30 05/04/21 12:07 Hydrocodone/Acetaminophen 5-325 Mg Tab PO 2 each Q6H PRN Administration Pain, Moderate (4-6) Heparin Sodium (Porcine) 5,000 unit 05/01/21 06:00 05/04/21 14:00 Heparin 5,000 Unit/1 Ml Vial SUB-Q 5,000 unit Q8HR MARI Administration Vancomycin HCl 1,500 mg/ 530 mls @ 333.333 mls/hr 05/02/21 06:00 05/04/21 06:45 Sodium Chloride IV 333.333 mls/hr Q24H MARI Administration Dextrose/Sodium Chloride 1,000 mls @ 125 mls/hr 05/02/21 18:30 05/03/21 12:15 D5ns IV 125 mls/hr DIRECT MARI Administration Ceftriaxone Sodium 2 gm in 100 mls @ 200 mls/hr 05/03/21 16:00 05/04/21 17:01 Rocephin/Ns 2 Gm/100 Ml IV 200 mls/hr Q24H MARI Administration Protocol Ibuprofen 600 mg 05/01/21 02:30 Ibuprofen 600 Mg Tab PO Q6H PRN Pain, Mild (1-3) Insulin Human Regular 0 units 05/01/21 17:30 05/04/21 17:30 Insulin Regular, Human 100 Units/1 Ml SUB-Q Not Given ACHS MARI Protocol Morphine Sulfate 2 mg 05/02/21 17:51 Morphine 2 Mg/1 Ml Inj IV Q4H PRN Pain , Severe (7-10) Ondansetron HCl 4 mg 05/01/21 02:30 05/02/21 06:25 Ondansetron 4 Mg/2 Ml Inj IV 4 mg Q8H PRN Administration Nausea And Vomiting Senna 8.6 mg 05/01/21 02:30 Sennosides 8.6 Mg Tab PO Q12HR PRN Constipation Sodium Chloride 10 ml 05/01/21 10:00 05/04/21 14:01 Sodium Chloride 0.9% 10 Ml Flush Syringe IV 10 ml BID MARI Administration Sodium Hypochlorite 1 applic 05/04/21 07:00 Sodium Hypochlorite, Dakin's 1/2 Strength (0.25%) 473 Ml Topical Soln TP Q12H PRN Wound Care
[2021-05-05] MEDS: D5W/0.9% NACL 1,000 ML IV SCH ×2 (01:45→21:32)
[2021-05-05] MEDS: HEPARIN 5,000 UNIT/1 ML VIAL SUB-Q SCH ×3 (06:39→21:32)
[2021-05-05] MEDS: VANCOMYCIN 1,500 MG in SODIUM CHLORIDE 0.9% 500 ML 500 ML IV SCH (06:40)
[2021-05-05] MEDS: INSULIN REGULAR, HUMAN 100 UNITS/1 ML SUB-Q SCH ×4 (08:02→21:29)
[2021-05-05] MEDS: SODIUM HYPOCHLORITE, DAKIN'S FULL STRENGTH (0.5%) 473 ML TOPICAL SOLN TP SCH ×2 (08:25→18:33)
[2021-05-05] MEDS: ONDANSETRON 4 MG/2 ML INJ IV PRN (09:27)
--- NOTE | 2021-05-05 11:05 | Consultation ---
History of Present Illness Consult date: 05/05/21 Chief complaint: Right foot infection - History of present illness History of present illness: 51 yo diabetic female with right foot infection. This was debrided yesterday by Dr. Tang. See Dr. Tang's notes. Dr. Tang concerned that pt needs a right great toe TMA. Vascular has already evaluated the pt and found her to have adequate blood flow for healing. Past History Past Medical History: diabetes, other (right great toe diabetic ulcer) Past Surgical History: No surgical history Social history: no significant social history, lives with family Family history: diabetes Medications and Allergies Allergies Allergy/AdvReac Type Severity Reaction Status Date / Time No Known Allergies Allergy Unverified 04/30/21 18:32 Home Medications Medication Instructions Recorded Confirmed Last Taken Type Gabapentin [Neurontin] 900 mg PO DAILY PRN 05/01/21 05/01/21 Unknown History glipiZIDE [Glucotrol] 10 mg PO BID 05/01/21 05/01/21 04/30/21 22:00 History Active Meds: Active Medications Acetaminophen (Acetaminophen 325 Mg Tab) 650 mg PO Q4H PRN PRN Reason: Pain MILD(1-3)/Fever >100.5/MORALES Last Admin: 05/01/21 13:01 Dose: 650 mg Documented by: Hydrocodone Bitart/Acetaminophen (Hydrocodone/Acetaminophen 5-325 Mg Tab) 2 each PO Q6H PRN PRN Reason: Pain, Moderate (4-6) Last Admin: 05/04/21 12:07 Dose: 2 each Documented by: Heparin Sodium (Porcine) (Heparin 5,000 Unit/1 Ml Vial) 5,000 unit SUB-Q Q8HR MARI Last Admin: 05/05/21 06:39 Dose: 5,000 unit Documented by: Vancomycin HCl 1,500 mg/ (Sodium Chloride) 530 mls @ 333.333 mls/hr IV Q24H MARI Last Admin: 05/05/21 06:40 Dose: 333.333 mls/hr Documented by: Dextrose/Sodium Chloride (D5ns) 1,000 mls @ 125 mls/hr IV DIRECT MARI Last Admin: 05/05/21 01:45 Dose: 125 mls/hr Documented by: Ceftriaxone Sodium (Rocephin/Ns 2 Gm/100 Ml) 2 gm in 100 mls @ 200 mls/hr IV Q24H MARI; Protocol Last Admin: 05/04/21 17:01 Dose: 200 mls/hr Documented by: Insulin Human Regular (Insulin Regular, Human 100 Units/1 Ml) 0 units SUB-Q ACHS [facility]; Protocol Last Admin: 05/05/21 08:02 Dose: Not Given Documented by: Morphine Sulfate (Morphine 2 Mg/1 Ml Inj) 2 mg IV Q4H PRN PRN Reason: Pain , Severe (7-10) Ondansetron HCl (Ondansetron 4 Mg/2 Ml Inj) 4 mg IV Q8H PRN PRN Reason: Nausea And Vomiting Last Admin: 05/05/21 09:27 Dose: 4 mg Documented by: Senna (Sennosides 8.6 Mg Tab) 8.6 mg PO Q12HR PRN PRN Reason: Constipation Sodium Chloride (Sodium Chloride 0.9% 10 Ml Flush Syringe) 10 ml IV BID MARI Last Admin: 05/05/21 09:27 Dose: 10 ml Documented by: Sodium Hypochlorite (Sodium Hypochlorite, Dakin's 1/2 Strength (0.25%) 473 Ml Topical Soln) 1 applic TP Q12H PRN PRN Reason: Wound Care Review of Systems All systems: negative (none) Exam Vital Signs Temp Pulse Resp BP Pulse Ox 99.4 F 114 H 20 112/59 99 04/30/21 18:33 04/30/21 18:33 04/30/21 18:33 04/30/21 18:33 04/30/21 18:33 - General physical appearance Positive: well developed, well nourished, no distress - Eyes Positive: PERRL, normal occular movement - ENT Positive: normal pinna, normal nares, normal mucosa, no hearing loss, no congestion - Neck Positive: no masses, no bruits, trachea midline, no venous distension - Respiratory Positive: normal expansion, normal respiratory effort, clear to auscultation - Cardiovascular Rhythm: regular Heart Sounds: Present: S1 & S2. Absent: rub, click - Extremities Extremities: no ischemia, pulses symmetrical, No edema - Breasts Breasts: normal, no mass, no skin changes - Abdomen Abdomen: Present: soft, bowel sounds normal. Absent: tender, distended Hernia: none - Genitourinary Male Genitourinary: normal Female Genitourinary: normal - Integumentary no rash, no growths, no abnormal pigmentation, other (There is a large right, mostly plantar wound involving the area from the base of the great toe to the mid-first metatarsal shaft. The 1st metatarsal head is exposed and dessicated. There is no undrained infection.) - Neurologic Neurologic: alert and oriented to time, place and person, motor strength and sensation are grossly intact - Musculoskeletal normal gait, normal posture - Psychiatric Psychiatric: appropriate mood/affect, intact judgment & insight Results - Labs 05/03/21 04:24 05/03/21 04:24 Abnormal lab results 05/01/21 05/01/21 05/04/21 Range/Units 08:55 12:40 11:52 POC Glucose 41 L 209 H 117 H (70-105) mg/dL 05/04/21 05/04/21 05/05/21 Range/Units 17:23 20:26 07:41 POC Glucose 144 H 161 H 132 H (70-105) mg/dL 05/05/21 Range/Units 09:43 POC Glucose 130 H (70-105) mg/dL - Imaging Additional studies: X-ray of the right foot was reviewed. Assessment and Plan - Patient Problems (1) Chronic osteomyelitis of toe of right foot Current Visit: Yes Status: Acute Plan to address problem: 1) TMA of right great toe. This will be performed this afternoon.
--- NOTE | 2021-05-05 14:10 | Progress Note ---
Assessment and Plan Assessment and plan: # Sepsis. - Present on admission. Patient meets criteria given the leukocytosis, tachycardia and diagnosis of osteomyelitis. - now resolved, vss - wbc count improving, 13.5 on admission now 6.5. Wound culture demonstrates GPC and GNR. - Blood cultures no growth to date -IV vancomycin, IV ceftriaxone Infectious disease following # Right great toe osteomyelitis. XR foot 04/30/2021: Osteomyelitis with extensive soft tissue infection Management as above Infectious disease and general surgery following # Status post debridement by general surgery Plan for amputation evaluation per discussion with general surgery this morning # Right foot cellulitis Management as above # Diabetic foot ulcer. Management as above # Diabetes mellitus type 2, uncontrolled - accuchecks ac/hs - SSI # Acute kidney injury. (Resolved) - Etiology likely secondary to sepsis/ATN +/-vasomotor nephropathy. -Creatinine now at baseline Avoid nephrotoxic agents # PCOS Chronic #DVT prophylaxis Heparin 5000 units subcu every 8 hour Hospital course to date: 05/01/2021. Continue IV antibiotics and follow-up blood cultures. ID consultation pending. Consider surgery consultation. 05/02/2021. Consult general surgery for further evaluation. Continue IV antibiotics and follow-up blood cultures. ID consultation pending. 05/03/2021. Surgery to perform OR debridement today. Vascular surgery also following. Follow-up arterial ultrasound. Continue empiric IV antibiotics. Await ID consultation. BG is well controlled with current regimen. 05/04/2021: s/p debridement yesterday with gen surgery. D/w Dr. Lee who states that patient needs evaluation for great toe amputation. Dr. Evans will be consulted to evaluate. Physical therapy consulted for heel offloading and gait t raining. 05/05/2021: plan for TMA today with Dr. Evans. Will follow up post op. History Interval history: No acute complaints on encounter. Discussed plan for TMA procedure. patient likely to go this afternoon to OR. Hospitalist Physical - Physical exam Narrative exam: Physical Exam: Constitutional: Alert, cooperative. No acute distress Head, Ears, Nose: Normocephalic, atraumatic. External ears, nose normal Eyes: Conjunctivae/corneas clear. No icterus. No ptosis. Neck: Supple, no meningeal signs Oral: dentition fair, no thrush Cardiovascular: S1, S2 normal. Respiratory: Good air entry, clear to auscultation bilaterally GI: Soft, non-tender; bowel sounds normal. No peritoneal signs. Musculoskeletal: No pedal edema, no cyanosis. Skin: No rash or abscess Extremity: Right foot wound dressing removed at bedside. No drainage or odor noted. Large wound with bone exposed noted. General surgery at bedside to pack with gauze and wrapped with Kerlix. Hem/Lymphatic: No palpable cervical or supraclavicular nodes. No lymphangitis Psych: Mood ok. Affect normal Neurological: Awake, alert, oriented. No gross abnormality - Constitutional Vitals: Temp Pulse Resp BP Pulse Ox 98.3 F 74 17 138/70 99 05/05/21 12:27 05/05/21 12:27 05/05/21 12:27 05/05/21 12:27 05/05/21 12:27 General appearance: Present: mild distress (Right foot pain) Results - Labs CBC & Chem 7: 05/03/21 04:24 05/03/21 04:24 Labs: Laboratory Last Values WBC 6.5 K/mm3 (4.5-11.0) 05/03/21 04:24 RBC 3.64 M/mm3 (3.65-5.03) L 05/03/21 04:24 Hgb 10.4 gm/dl (10.1-14.3) 05/03/21 04:24 Hct 31.4 % (30.3-42.9) 05/03/21 04:24 MCV 86 fl (79-97) 05/03/21 04:24 MCH 29 pg (28-32) 05/03/21 04:24 MCHC 33 % (30-34) 05/03/21 04:24 RDW 14.5 % (13.2-15.2) 05/03/21 04:24 Plt Count 175 K/mm3 (140-440) 05/03/21 04:24 Lymph % (Auto) 11.4 % (13.4-35.0) L 05/03/21 04:24 [place] % (Auto) 8.5 % (0.0-7.3) H 05/03/21 04:24 Eos % (Auto) 0.5 % (0.0-4.3) 05/03/21 04:24 Baso % (Auto) 0.4 % (0.0-1.8) 05/03/21 04:24 Lymph # (Auto) 0.7 K/mm3 (1.2-5.4) L 05/03/21 04:24 [place] # (Auto) 0.6 K/mm3 (0.0-0.8) 05/03/21 04:24 Eos # (Auto) 0.0 K/mm3 (0.0-0.4) 05/03/21 04:24 Baso # (Auto) 0.0 K/mm3 (0.0-0.1) 05/03/21 04:24 Seg Neutrophils % 79.2 % (40.0-70.0) H 05/03/21 04:24 Seg Neutrophils # 5.2 K/mm3 (1.8-7.7) 05/03/21 04:24 ESR 33 mm/Hr (0-20) 04/30/21 21:59 Sodium 144 mmol/L (137-145) 05/03/21 04:24 Potassium 3.8 mmol/L (3.6-5.0) 05/03/21 04:24 Chloride 108.4 mmol/L (98-107) H 05/03/21 04:24 Carbon Dioxide 25 mmol/L (22-30) 05/03/21 04:24 Anion Gap 14 mmol/L 05/03/21 04:24 BUN 23 mg/dL (7-17) H 05/03/21 04:24 Creatinine 1.1 mg/dL (0.6-1.2) 05/03/21 04:24 Estimated GFR 53 ml/min 05/03/21 04:24 BUN/Creatinine Ratio 21 % 05/03/21 04:24 Glucose 102 mg/dL (65-100) H 05/03/21 04:24 POC Glucose 128 mg/dL (70-105) H 05/05/21 12:22 Hemoglobin A1c 9.6 % (4-6) H 05/03/21 04:24 Lactic Acid 1.90 mmol/L (0.7-2.0) 05/01/21 03:19 Calcium 7.0 mg/dL (8.4-10.2) L 05/03/21 04:24 Total Bilirubin 1.60 mg/dL (0.1-1.2) H 05/02/21 05:33 AST 30 units/L (5-40) 05/02/21 05:33 ALT 31 units/L (7-56) 05/02/21 05:33 Alkaline Phosphatase 438 units/L (35-129) H 05/02/21 05:33 Total Protein 5.8 g/dL (6.3-8.2) L 05/02/21 05:33 Albumin 2.5 g/dL (3.9-5) L 05/02/21 05:33 Albumin/Globulin Ratio 0.8 % 05/02/21 05:33 Urine Color Tia (Yellow) 05/01/21 Unknown Urine Turbidity Slightly-cloudy (Clear) 05/01/21 Unknown Urine pH 5.0 (5.0-7.0) 05/01/21 Unknown Ur Specific [place] 1.018 (1.003-1.030) 05/01/21 Unknown Urine Protein <15 mg/dl mg/dL (Negative) 05/01/21 Unknown Urine Glucose (UA) Neg mg/dL (Negative) 05/01/21 Unknown Urine Ketones Neg mg/dL (Negative) 05/01/21 Unknown Urine Blood Neg (Negative) 05/01/21 Unknown Urine Nitrite Neg (Negative) 05/01/21 Unknown Urine Bilirubin Neg (Negative) 05/01/21 Unknown Urine Urobilinogen 4.0 mg/dL (<2.0) 05/01/21 Unknown Ur Leukocyte Esterase Neg (Negative) 05/01/21 Unknown Urine WBC (Auto) 6.0 /HPF (0.0-6.0) 05/01/21 Unknown Urine RBC (Auto) 4.0 /HPF (0.0-6.0) 05/01/21 Unknown U Epithel Cells (Auto) 4.0 /HPF (0-13.0) 05/01/21 Unknown Urine Bacteria (Auto) 1+ /HPF (Negative) 05/01/21 Unknown Urine Mucus Few /HPF 05/01/21 Unknown Vancomycin Trough 16.7 ug/mL (5.0-20.0) 05/04/21 15:25 Blood Type O POSITIVE 05/01/21 03:25 Antibody Screen Negative 05/01/21 03:25 Microbiology: Microbiology 05/03/21 Unknown Foot - Right Anaerobic Culture - Preliminary 05/03/21 Unknown Foot - Right Surgical Culture - Preliminary 05/01/21 Unknown Wound - Deep Wound Culture - Preliminary Enterococcus Species Proteus Species 05/01/21 02:04 Peripheral/Venous Blood Culture - Preliminary NO GROWTH AFTER 4 DAYS 05/01/21 01:45 Peripheral/Venous Blood Culture - Preliminary NO GROWTH AFTER 4 DAYS Sales/IV: Voiding Method Toilet Active Medications - Current Medications Current Medications: Generic Name Dose Route Start Last Admin Trade Name Freq PRN Reason Stop Dose Admin Acetaminophen 650 mg 05/01/21 02:30 05/01/21 13:01 Acetaminophen 325 Mg Tab PO 650 mg Q4H PRN Administration Pain MILD(1-3)/Fever >100.5/MORALES Hydrocodone Bitart/Acetaminophen 2 each 05/01/21 02:30 05/04/21 12:07 Hydrocodone/Acetaminophen 5-325 Mg Tab PO 2 each Q6H PRN Administration Pain, Moderate (4-6) Heparin Sodium (Porcine) 5,000 unit 05/01/21 06:00 05/05/21 14:05 Heparin 5,000 Unit/1 Ml Vial SUB-Q Not Given Q8HR MARI Vancomycin HCl 1,500 mg/ 530 mls @ 333.333 mls/hr 05/02/21 06:00 05/05/21 06:40 Sodium Chloride IV 333.333 mls/hr Q24H MARI Administration Dextrose/Sodium Chloride 1,000 mls @ 125 mls/hr 05/02/21 18:30 05/05/21 01:45 D5ns IV 125 mls/hr DIRECT MARI Administration Ceftriaxone Sodium 2 gm in 100 mls @ 200 mls/hr 05/03/21 16:00 05/04/21 17:01 Rocephin/Ns 2 Gm/100 Ml IV 200 mls/hr Q24H MARI Administration Protocol Insulin Human Regular 0 units 05/01/21 17:30 05/05/21 11:13 Insulin Regular, Human 100 Units/1 Ml SUB-Q Not Given ACHS [facility] Protocol Morphine Sulfate 2 mg 05/02/21 17:51 Morphine 2 Mg/1 Ml Inj IV Q4H PRN Pain , Severe (7-10) Ondansetron HCl 4 mg 05/01/21 02:30 05/05/21 09:27 Ondansetron 4 Mg/2 Ml Inj IV 4 mg Q8H PRN Administration Nausea And Vomiting Senna 8.6 mg 05/01/21 02:30 Sennosides 8.6 Mg Tab PO Q12HR PRN Constipation Sodium Chloride 10 ml 05/01/21 10:00 05/05/21 09:27 Sodium Chloride 0.9% 10 Ml Flush Syringe IV 10 ml BID MAIR Administration Sodium Hypochlorite 1 applic 05/04/21 07:00 Sodium Hypochlorite, Dakin's 1/2 Strength (0.25%) 473 Ml Topical Soln TP Q12H PRN Wound Care
--- NOTE | 2021-05-05 14:22 | Progress Note ---
Assessment and Plan Cultures: Blood culture no growth so far. Wound culture GPC, GNR A/P: 51 yo F PMHx DM2 now with right foot ostoemyelitis. #Acute sepsis: with fevers and leukocytosis #Right foot osteomyelitis: s/p debridement. For TMA. Has had angiography as well. No guarantees medical therapy will be successful, ongoing risk of amputation. #Diabetes: tight glycemic control for best outcomes. Recs: -Continue vancomycin goal trough 10-20 -Continue ceftriaxone -With amputation today recommend obtaining margin pathology and deep cultures. Surface culture may represent colonization -Recommend outpatient follow-up in my clinic in 1-2 weeks to follow-up margin to see if ongoing antibiotics required. Thank you for the consult, we will continue to follow. Deanna Spangler MD [facility] ([facility]) O: [phone] F: [phone] Subjective Date of service: 05/05/21 Interval history: Afebrile, no acute change. Cultures with Enterococcus and Proteus Objective - Exam Narrative Exam: Physical Exam: Constitutional: Alert, cooperative. No acute distress Head, Ears, Nose: Normocephalic, atraumatic. External ears, nose normal Eyes: Conjunctivae/corneas clear. No icterus. No ptosis. Neck: Supple, no meningeal signs Oral: dentition fair, no thrush Cardiovascular: S1, S2 normal. Respiratory: Good air entry, clear to auscultation bilaterally GI: Soft, non-tender; bowel sounds normal. No peritoneal signs. Musculoskeletal: Right foot dressed postoperatively Skin: No rash or abscess Hem/Lymphatic: No palpable cervical or supraclavicular nodes. No lymphangitis Psych: Mood ok. Affect normal Neurological: Awake, alert, oriented. No gross abnormality - Constitutional Vitals: Vital Signs Temp Pulse Resp BP Pulse Ox 98.3 F 74 17 138/70 99 05/05/21 12:27 05/05/21 12:27 05/05/21 12:27 05/05/21 12:27 05/05/21 12:27 Temperature -Last 24 Hours Temperature 98.3 F Temperature 97.8 F Temperature 97.7 F Temperature 98.3 F Temperature 97.6 F Temperature 98.2 F - Labs CBC & Chem 7: 05/03/21 04:24 05/03/21 04:24 Labs: Abnormal lab results 05/01/21 05/01/21 05/04/21 Range/Units 08:55 12:40 17:23 POC Glucose 41 L 209 H 144 H (70-105) mg/dL 05/04/21 05/05/21 05/05/21 Range/Units 20:26 07:41 09:43 POC Glucose 161 H 132 H 130 H (70-105) mg/dL 05/05/21 Range/Units 12:22 POC Glucose 128 H (70-105) mg/dL
[2021-05-05] MEDS ORDERED: HYDROmorphone 1 MG/1 ML INJ ONE (14:30)
[2021-05-05] MEDS ORDERED: propofoL 200 MG/20 ML VIAL IV ONE (14:30)
[2021-05-05] MEDS ORDERED: LIDOCAINE MPF (2%) 20 MG/1 ML VIAL 5 ML ONE (14:30)
[2021-05-05] MEDS ORDERED: LIDOCAINE (1%) 10 MG/1 ML VIAL 20 ML MDV ONE (14:48)
[2021-05-05] MEDS ORDERED: MINERAL OIL/PETROLATUM, WHITE OPHTH OINT 3.5 GM ONE ×2 (14:54)
--- NOTE | 2021-05-05 15:09 | Anesthesia Day of Surgery ---
Anesthesia Day of Surgery - Day of Surgery Patient Examined: Yes Patient H&P Reviewed: Yes Patient is NPO: Yes
[2021-05-05] MEDS ORDERED: SODIUM CHLORIDE 0.9% 1000 ML 1,000 ML ONE (15:15)
[2021-05-05] MEDS ORDERED: ONDANSETRON 4 MG/2 ML INJ ONE (15:42)
--- NOTE | 2021-05-05 15:45 | Procedure Note ---
Date of procedure: 05/05/21 Pre-op diagnosis: Osteomyelitis of right great toe Post-op diagnosis: same Procedure: TMA of right great toe Description of procedure: Pt was placed supine on the OR table. General anesthesia was administered. The right foot was prepped and draped. A tear drop incision was made about the right great toe and the toe amputated at the MTP joint. Periosteum was elevated off of the distal metatarsal shaft and the distal metatarsal shaft amputated with a bone saw. Hemostasis was obtained with the Bovie. Exposed tendons and non-viable tissue was debrided with the Bovie. Wound was packed open with a dilute Betadine moistened Kerlix roll followed by dry Kerlix and Coban wraps. Pt tolerated the procedure well and was taken to PACU in stable condition. Anesthesia: other (LMA) Surgeon: SHERRY SHAHID Estimated blood loss: minimal Pathology: list (1) Right great toe 2) Right 1st metatarsal head) Specimen disposition: to lab Condition: stable Disposition: PACU
[2021-05-05] MEDS: cefTRIAXone/NS 2 GM/100 ML 2 GM/100 ML BAG IV SCH (16:55)
[2021-05-06] MEDS: HEPARIN 5,000 UNIT/1 ML VIAL SUB-Q SCH ×3 (06:18→22:52)
[2021-05-06] MEDS: VANCOMYCIN 1,500 MG in SODIUM CHLORIDE 0.9% 500 ML 500 ML IV SCH (06:18)
[2021-05-06] MEDS: INSULIN REGULAR, HUMAN 100 UNITS/1 ML SUB-Q SCH ×4 (09:51→23:51)
[2021-05-06] MEDS: SODIUM HYPOCHLORITE, DAKIN'S FULL STRENGTH (0.5%) 473 ML TOPICAL SOLN TP SCH ×2 (10:11→23:36)
[2021-05-06] MEDS ORDERED: KETOROLAC 30 MG/1 ML INJ IV PRN (10:30)
[2021-05-06] MEDS: D5W/0.9% NACL 1,000 ML IV SCH ×2 (11:38→22:56)
--- NOTE | 2021-05-06 12:44 | Progress Note ---
Assessment and Plan Assessment and plan: # Sepsis. - Present on admission. Patient meets criteria given the leukocytosis, tachycardia and diagnosis of osteomyelitis. - now resolved, vss - wbc count improving, 13.5 on admission now 6.5. Wound culture demonstrates GPC and GNR. - Blood cultures no growth to date -IV vancomycin, IV ceftriaxone Infectious disease following # Right great toe osteomyelitis. XR foot 04/30/2021: Osteomyelitis with extensive soft tissue infection Management as above Infectious disease and general surgery following # Status post debridement by general surgery Plan for amputation evaluation per discussion with general surgery this morning # Right foot cellulitis Management as above # Diabetic foot ulcer. Management as above # Diabetes mellitus type 2, uncontrolled - accuchecks ac/hs - SSI # Acute kidney injury. (Resolved) - Etiology likely secondary to sepsis/ATN +/-vasomotor nephropathy. -Creatinine now at baseline Avoid nephrotoxic agents # PCOS Chronic #DVT prophylaxis Heparin 5000 units subcu every 8 hour Hospital course to date: 05/01/2021. Continue IV antibiotics and follow-up blood cultures. ID consultation pending. Consider surgery consultation. 05/02/2021. Consult general surgery for further evaluation. Continue IV antibiotics and follow-up blood cultures. ID consultation pending. 05/03/2021. Surgery to perform OR debridement today. Vascular surgery also following. Follow-up arterial ultrasound. Continue empiric IV antibiotics. Await ID consultation. BG is well controlled with current regimen. 05/04/2021: s/p debridement yesterday with gen surgery. D/w Dr. Lee who states that patient needs evaluation for great toe amputation. Dr. Evans will be consulted to evaluate. Physical therapy consulted for heel offloading and gait t raining. 05/05/2021: plan for TMA today with Dr. Evans. Will follow up post op. Spoke with mother on phone regarding patient clinical status. Mother states that she would like the patient to go to her home in [facility]. Patient yesterday had mentioned that she would be going to her mother's place at the time of discharge. 05/06/2021: Status post right toe amputation. Patient complaining of pain we will add Toradol to pain regimen to be alternated with hydrocodone, with morphine for breakthrough pain. We will coordinate with general surgery and infectious disease regarding final recommendations. Coordinate with registered nurse hh case manager for patient outpatient set up of physical therapy and outpatient antibiotics. History Interval history: Status post right toe amputation. Patient is doing well overall this morning. She states that her right foot is more painful today. Remainder of ROS negative except for stated Hospitalist Physical - Physical exam Narrative exam: Physical Exam: Constitutional: Alert, cooperative. No acute distress Head, Ears, Nose: Normocephalic, atraumatic. External ears, nose normal Eyes: Conjunctivae/corneas clear. No icterus. No ptosis. Neck: Supple, no meningeal signs Oral: dentition fair, no thrush Cardiovascular: S1, S2 normal. Respiratory: Good air entry, clear to auscultation bilaterally GI: Soft, non-tender; bowel sounds normal. No peritoneal signs. Musculoskeletal: No pedal edema, no cyanosis. Skin: No rash or abscess Extremity: Right foot wound dressing removed at bedside. No drainage or odor noted. Status post right toe amputation Hem/Lymphatic: No palpable cervical or supraclavicular nodes. No lymphangitis Psych: Mood ok. Affect normal Neurological: Awake, alert, oriented. No gross abnormality - Constitutional Vitals: Temp Pulse Resp BP Pulse Ox 98.4 F 75 18 135/67 97 05/06/21 07:27 05/06/21 07:27 05/06/21 10:00 05/06/21 07:27 05/06/21 10:00 General appearance: Present: mild distress (Right foot pain) Results - Labs CBC & Chem 7: 05/03/21 04:24 05/03/21 04:24 Labs: Laboratory Last Values WBC 6.5 K/mm3 (4.5-11.0) 05/03/21 04:24 RBC 3.64 M/mm3 (3.65-5.03) L 05/03/21 04:24 Hgb 10.4 gm/dl (10.1-14.3) 05/03/21 04:24 Hct 31.4 % (30.3-42.9) 05/03/21 04:24 MCV 86 fl (79-97) 05/03/21 04:24 MCH 29 pg (28-32) 05/03/21 04:24 MCHC 33 % (30-34) 05/03/21 04:24 RDW 14.5 % (13.2-15.2) 05/03/21 04:24 Plt Count 175 K/mm3 (140-440) 05/03/21 04:24 Lymph % (Auto) 11.4 % (13.4-35.0) L 05/03/21 04:24 [place] % (Auto) 8.5 % (0.0-7.3) H 05/03/21 04:24 Eos % (Auto) 0.5 % (0.0-4.3) 05/03/21 04:24 Baso % (Auto) 0.4 % (0.0-1.8) 05/03/21 04:24 Lymph # (Auto) 0.7 K/mm3 (1.2-5.4) L 05/03/21 04:24 [place] # (Auto) 0.6 K/mm3 (0.0-0.8) 05/03/21 04:24 Eos # (Auto) 0.0 K/mm3 (0.0-0.4) 05/03/21 04:24 Baso # (Auto) 0.0 K/mm3 (0.0-0.1) 05/03/21 04:24 Seg Neutrophils % 79.2 % (40.0-70.0) H 05/03/21 04:24 Seg Neutrophils # 5.2 K/mm3 (1.8-7.7) 05/03/21 04:24 ESR 33 mm/Hr (0-20) 04/30/21 21:59 Sodium 144 mmol/L (137-145) 05/03/21 04:24 Potassium 3.8 mmol/L (3.6-5.0) 05/03/21 04:24 Chloride 108.4 mmol/L (98-107) H 05/03/21 04:24 Carbon Dioxide 25 mmol/L (22-30) 05/03/21 04:24 Anion Gap 14 mmol/L 05/03/21 04:24 BUN 23 mg/dL (7-17) H 05/03/21 04:24 Creatinine 1.1 mg/dL (0.6-1.2) 05/03/21 04:24 Estimated GFR 53 ml/min 05/03/21 04:24 BUN/Creatinine Ratio 21 % 05/03/21 04:24 Glucose 102 mg/dL (65-100) H 05/03/21 04:24 POC Glucose 168 mg/dL (70-105) H 05/06/21 11:04 Hemoglobin A1c 9.6 % (4-6) H 05/03/21 04:24 Lactic Acid 1.90 mmol/L (0.7-2.0) 05/01/21 03:19 Calcium 7.0 mg/dL (8.4-10.2) L 05/03/21 04:24 Total Bilirubin 1.60 mg/dL (0.1-1.2) H 05/02/21 05:33 AST 30 units/L (5-40) 05/02/21 05:33 ALT 31 units/L (7-56) 05/02/21 05:33 Alkaline Phosphatase 438 units/L (35-129) H 05/02/21 05:33 Total Protein 5.8 g/dL (6.3-8.2) L 05/02/21 05:33 Albumin 2.5 g/dL (3.9-5) L 05/02/21 05:33 Albumin/Globulin Ratio 0.8 % 05/02/21 05:33 Urine Color Tia (Yellow) 05/01/21 Unknown Urine Turbidity Slightly-cloudy (Clear) 05/01/21 Unknown Urine pH 5.0 (5.0-7.0) 05/01/21 Unknown Ur Specific [place] 1.018 (1.003-1.030) 05/01/21 Unknown Urine Protein <15 mg/dl mg/dL (Negative) 05/01/21 Unknown Urine Glucose (UA) Neg mg/dL (Negative) 05/01/21 Unknown Urine Ketones Neg mg/dL (Negative) 05/01/21 Unknown Urine Blood Neg (Negative) 05/01/21 Unknown Urine Nitrite Neg (Negative) 05/01/21 Unknown Urine Bilirubin Neg (Negative) 05/01/21 Unknown Urine Urobilinogen 4.0 mg/dL (<2.0) 05/01/21 Unknown Ur Leukocyte Esterase Neg (Negative) 05/01/21 Unknown Urine WBC (Auto) 6.0 /HPF (0.0-6.0) 05/01/21 Unknown Urine RBC (Auto) 4.0 /HPF (0.0-6.0) 05/01/21 Unknown U Epithel Cells (Auto) 4.0 /HPF (0-13.0) 05/01/21 Unknown Urine Bacteria (Auto) 1+ /HPF (Negative) 05/01/21 Unknown Urine Mucus Few /HPF 05/01/21 Unknown Vancomycin Trough 8.5 ug/mL (5.0-20.0) 05/06/21 05:08 Blood Type O POSITIVE 05/01/21 03:25 Antibody Screen Negative 05/01/21 03:25 Microbiology: Microbiology 05/01/21 02:04 Peripheral/Venous Blood Culture - Final NO GROWTH AFTER 5 DAYS 05/01/21 01:45 Peripheral/Venous Blood Culture - Final NO GROWTH AFTER 5 DAYS Sales/IV: Voiding Method Bedpan Active Medications - Current Medications Current Medications: Generic Name Dose Route Start Last Admin Trade Name Freq PRN Reason Stop Dose Admin Acetaminophen 650 mg 05/01/21 02:30 05/01/21 13:01 Acetaminophen 325 Mg Tab PO 650 mg Q4H PRN Administration Pain MILD(1-3)/Fever >100.5/MORALES Hydrocodone Bitart/Acetaminophen 2 each 05/01/21 02:30 05/04/21 12:07 Hydrocodone/Acetaminophen 5-325 Mg Tab PO 2 each Q6H PRN Administration Pain, Moderate (4-6) Heparin Sodium (Porcine) 5,000 unit 05/01/21 06:00 05/06/21 06:18 Heparin 5,000 Unit/1 Ml Vial SUB-Q 5,000 unit Q8HR MARI Administration Dextrose/Sodium Chloride 1,000 mls @ 125 mls/hr 05/02/21 18:30 05/06/21 11:38 D5ns IV 125 mls/hr DIRECT MARI Administration Ceftriaxone Sodium 2 gm in 100 mls @ 200 mls/hr 05/03/21 16:00 05/05/21 16:55 Rocephin/Ns 2 Gm/100 Ml IV 200 mls/hr Q24H MARI Administration Protocol Vancomycin HCl 1,750 mg/ 535 mls @ 333.333 mls/hr 05/07/21 05:00 Sodium Chloride IV Q24H MARI Insulin Human Regular 0 units 05/01/21 17:30 05/06/21 11:38 Insulin Regular, Human 100 Units/1 Ml SUB-Q 2 units ACHS MARI Administration Protocol Ketorolac Tromethamine 15 mg 05/06/21 10:30 Ketorolac 30 Mg/1 Ml Inj IV 05/11/21 10:29 Q6H PRN Pain, Moderate (4-6) Morphine Sulfate 2 mg 05/02/21 17:51 05/05/21 21:35 Morphine 2 Mg/1 Ml Inj IV 2 mg Q4H PRN Administration Pain , Severe (7-10) Ondansetron HCl 4 mg 05/01/21 02:30 05/05/21 09:27 Ondansetron 4 Mg/2 Ml Inj IV 4 mg Q8H PRN Administration Nausea And Vomiting Senna 8.6 mg 05/01/21 02:30 Sennosides 8.6 Mg Tab PO Q12HR PRN Constipation Sodium Chloride 10 ml 05/01/21 10:00 05/06/21 10:04 Sodium Chloride 0.9% 10 Ml Flush Syringe IV 10 ml BID MARI Administration Sodium Hypochlorite 1 applic 05/05/21 07:00 05/06/21 10:11 Sodium Hypochlorite, [place]in's Full Strength (0.5%) 473 Ml Topical Soln TP 1 applicatio Q12H MARI Administration
[2021-05-06] MEDS: cefTRIAXone/NS 2 GM/100 ML 2 GM/100 ML BAG IV SCH (15:58)
[2021-05-06] MEDS: HYDROcodone/ACETAMINOPHEN 5-325 MG TAB PO PRN (16:52)
--- NOTE | 2021-05-06 17:09 | Progress Note ---
Assessment and Plan Cultures: Blood culture no growth so far. Wound culture Enterococcus, Proteus A/P: 51 yo F PMHx DM2 now with right foot ostoemyelitis. #Acute sepsis: with fevers and leukocytosis #Right foot osteomyelitis: s/p debridement. Amputation performed. Has had angiography as well. No guarantees medical therapy will be successful, ongoing risk of amputation. #Diabetes: tight glycemic control for best outcomes. Recs: -Continue vancomycin goal trough 10-20 -Continue ceftriaxone -With amputation today recommend obtaining margin pathology and deep cultures. Surface culture may represent colonization -Recommend outpatient follow-up in my clinic in 1-2 weeks to follow-up margin to see if ongoing antibiotics required. -Okay to discharge on 7 days Augmentin 875/125 mg every 12 hours. Thank you for the consult, we will sign off. Please call with questions. Deanna Spangler MD [facility] ([facility]) O: [phone] F: [phone] Subjective Date of service: 05/06/21 Interval history: Afebrile, normal white count. Surgical cultures pending. Had amputation done yesterday. Objective - Exam Narrative Exam: Physical Exam: Constitutional: Alert, cooperative. No acute distress Head, Ears, Nose: Normocephalic, atraumatic. External ears, nose normal Eyes: Conjunctivae/corneas clear. No icterus. No ptosis. Neck: Supple, no meningeal signs Oral: dentition fair, no thrush Cardiovascular: S1, S2 normal. Respiratory: Good air entry, clear to auscultation bilaterally GI: Soft, non-tender; bowel sounds normal. No peritoneal signs. Musculoskeletal: Right foot dressed postoperatively Skin: No rash or abscess Hem/Lymphatic: No palpable cervical or supraclavicular nodes. No lymphangitis Psych: Mood ok. Affect normal Neurological: Awake, alert, oriented. No gross abnormality - Constitutional Vitals: Vital Signs Temp Pulse Resp BP Pulse Ox 98.6 F 75 18 129/71 94 05/06/21 16:03 05/06/21 16:03 05/06/21 16:03 05/06/21 16:03 05/06/21 16:03 Temperature -Last 24 Hours Temperature 98.6 F Temperature 98.4 F Temperature 98.4 F Temperature 98.6 F Temperature 97.5 F Temperature 98.0 F Temperature 97.8 F - Labs CBC & Chem 7: 05/03/21 04:24 05/03/21 04:24 Labs: Abnormal lab results 05/06/21 05/06/21 05/06/21 Range/Units 07:25 11:04 16:01 POC Glucose 138 H 168 H 185 H (70-105) mg/dL
[2021-05-07] MEDS ORDERED: VANCOMYCIN 1,750 MG in SODIUM CHLORIDE 0.9% 500 ML 500 ML IV SCH (05:00)
[2021-05-07 05:52] LABS: Blood Urea Nitrogen 9 mg/dL (7-17); Calcium 7.9 mg/dL (8.4-10.2); Hemolysis Index 0
[2021-05-07] MEDS: HEPARIN 5,000 UNIT/1 ML VIAL SUB-Q SCH ×3 (06:09→23:19)
[2021-05-07 06:11] LABS: BUN/Creatinine Ratio 13
[2021-05-07] MEDS: INSULIN REGULAR, HUMAN 100 UNITS/1 ML SUB-Q SCH ×4 (08:46→23:19)
--- NOTE | 2021-05-07 09:16 | Progress Note ---
Assessment and Plan Assessment and plan: # Sepsis. - Present on admission. Patient meets criteria given the leukocytosis, tachycardia and diagnosis of osteomyelitis. - now resolved, vss - wbc count improving, 13.5 on admission now 6.5. Blood cultures no growth to date. Wound culture demonstrates Enterococcus and Proteus Likely colonization Deep tissue culture micro pending - Blood cultures no growth to date -IV vancomycin, IV ceftriaxone discontinued, switched to Augmentin p.o. Infectious disease following # Right great toe osteomyelitis status post amputation XR foot 04/30/2021: Osteomyelitis with extensive soft tissue infection -Amputation by general surgery on 05/05/2021 -PT consulted, recommendations noted Management as above Infectious disease and general surgery following # Status post debridement by general surgery Plan for amputation evaluation per discussion with general surgery this morning # Right foot cellulitis Management as above # Diabetic foot ulcer. Management as above # Diabetes mellitus type 2, uncontrolled - accuchecks ac/hs - SSI # Acute kidney injury. (Resolved) - Etiology likely secondary to sepsis/ATN +/-vasomotor nephropathy. -Creatinine now at baseline Avoid nephrotoxic agents # PCOS Chronic #DVT prophylaxis Heparin 5000 units subcu every 8 hour Hospital course to date: 05/01/2021. Continue IV antibiotics and follow-up blood cultures. ID consult ation pending. Consider surgery consultation. 05/02/2021. Consult general surgery for further evaluation. Continue IV antibiotics and follow-up blood cultures. ID consultation pending. 05/03/2021. Surgery to perform OR debridement today. Vascular surgery also following. Follow-up arterial ultrasound. Continue empiric IV antibiotics. Await ID consultation. BG is well controlled with current regimen. 05/04/2021: s/p debridement yesterday with gen surgery. D/w Dr. Lee who states that patient needs evaluation for great toe amputation. Dr. Evans will be consulted to evaluate. Physical therapy consulted for heel offloading and gait training. 05/05/2021: plan for TMA today with Dr. Evans. Will follow up post op. Spoke with mother on phone regarding patient clinical status. Mother states that she would like the patient to go to her home in [facility]. Patient yesterday had mentioned that she would be going to her mother's place at the time of discharge. 05/06/2021: Status post right toe amputation. Patient complaining of pain we will add Toradol to pain regimen to be alternated with hydrocodone, with morphine for breakthrough pain. We will coordinate with general surgery and infectious disease regarding final recommendations. Coordinate with outsole caser for patient outpatient set up of physical therapy and outpatient antibiotics. 05/07/2021: Anticipating discharge tomorrow. Working with CM for outpatient set up of rehab. History Interval history: No acute complaints. Pain under better control. Hospitalist Physical - Physical exam Narrative exam: Physical Exam: Constitutional: Alert, cooperative. No acute distress Head, Ears, Nose: Normocephalic, atraumatic. External ears, nose normal Eyes: Conjunctivae/corneas clear. No icterus. No ptosis. Neck: Supple, no meningeal signs Oral: dentition fair, no thrush Cardiovascular: S1, S2 normal. Respiratory: Good air entry, clear to auscultation bilaterally GI: Soft, non-tender; bowel sounds normal. No peritoneal signs. Musculoskeletal: No pedal edema, no cyanosis. Skin: No rash or abscess Extremity: Status post right toe amputation Hem/Lymphatic: No palpable cervical or supraclavicular nodes. No lymphangitis Psych: Mood ok. Affect normal Neurological: Awake, alert, oriented. No gross abnormality - Constitutional Vitals: Temp Pulse Resp BP Pulse Ox 97.7 F 69 16 122/64 94 05/07/21 03:37 05/07/21 03:37 05/07/21 03:37 05/07/21 03:37 05/07/21 03:37 General appearance: Present: mild distress (Right foot pain) Results - Labs CBC & Chem 7: 05/03/21 04:24 05/07/21 05:10 Labs: Laboratory Last Values WBC 6.5 K/mm3 (4.5-11.0) 05/03/21 04:24 RBC 3.64 M/mm3 (3.65-5.03) L 05/03/21 04:24 Hgb 10.4 gm/dl (10.1-14.3) 05/03/21 04:24 Hct 31.4 % (30.3-42.9) 05/03/21 04:24 MCV 86 fl (79-97) 05/03/21 04:24 MCH 29 pg (28-32) 05/03/21 04:24 MCHC 33 % (30-34) 05/03/21 04:24 RDW 14.5 % (13.2-15.2) 05/03/21 04:24 Plt Count 175 K/mm3 (140-440) 05/03/21 04:24 Lymph % (Auto) 11.4 % (13.4-35.0) L 05/03/21 04:24 [place] % (Auto) 8.5 % (0.0-7.3) H 05/03/21 04:24 Eos % (Auto) 0.5 % (0.0-4.3) 05/03/21 04:24 Baso % (Auto) 0.4 % (0.0-1.8) 05/03/21 04:24 Lymph # (Auto) 0.7 K/mm3 (1.2-5.4) L 05/03/21 04:24 [place] # (Auto) 0.6 K/mm3 (0.0-0.8) 05/03/21 04:24 Eos # (Auto) 0.0 K/mm3 (0.0-0.4) 05/03/21 04:24 Baso # (Auto) 0.0 K/mm3 (0.0-0.1) 05/03/21 04:24 Seg Neutrophils % 79.2 % (40.0-70.0) H 05/03/21 04:24 Seg Neutrophils # 5.2 K/mm3 (1.8-7.7) 05/03/21 04:24 ESR 33 mm/Hr (0-20) 04/30/21 21:59 Sodium 144 mmol/L (137-145) 05/07/21 05:10 Potassium 3.7 mmol/L (3.6-5.0) 05/07/21 05:10 Chloride 111.4 mmol/L (98-107) H 05/07/21 05:10 Carbon Dioxide 27 mmol/L (22-30) 05/07/21 05:10 Anion Gap 9 mmol/L 05/07/21 05:10 BUN 9 mg/dL (7-17) 05/07/21 05:10 Creatinine 0.7 mg/dL (0.6-1.2) 05/07/21 05:10 Estimated GFR > 60 ml/min 05/07/21 05:10 BUN/Creatinine Ratio 13 % 05/07/21 05:10 Glucose 98 mg/dL (65-100) 05/07/21 05:10 POC Glucose 93 mg/dL (70-105) 05/07/21 08:31 Hemoglobin A1c 9.6 % (4-6) H 05/03/21 04:24 Lactic Acid 1.90 mmol/L (0.7-2.0) 05/01/21 03:19 Calcium 7.9 mg/dL (8.4-10.2) L 05/07/21 05:10 Total Bilirubin 1.60 mg/dL (0.1-1.2) H 05/02/21 05:33 AST 30 units/L (5-40) 05/02/21 05:33 ALT 31 units/L (7-56) 05/02/21 05:33 Alkaline Phosphatase 438 units/L (35-129) H 05/02/21 05:33 Total Protein 5.8 g/dL (6.3-8.2) L 05/02/21 05:33 Albumin 2.5 g/dL (3.9-5) L 05/02/21 05:33 Albumin/Globulin Ratio 0.8 % 05/02/21 05:33 Urine Color Tia (Yellow) 05/01/21 Unknown Urine Turbidity Slightly-cloudy (Clear) 05/01/21 Unknown Urine pH 5.0 (5.0-7.0) 05/01/21 Unknown Ur Specific [place] 1.018 (1.003-1.030) 05/01/21 Unknown Urine Protein <15 mg/dl mg/dL (Negative) 05/01/21 Unknown Urine Glucose (UA) Neg mg/dL (Negative) 05/01/21 Unknown Urine Ketones Neg mg/dL (Negative) 05/01/21 Unknown Urine Blood Neg (Negative) 05/01/21 Unknown Urine Nitrite Neg (Negative) 05/01/21 Unknown Urine Bilirubin Neg (Negative) 05/01/21 Unknown Urine Urobilinogen 4.0 mg/dL (<2.0) 05/01/21 Unknown Ur Leukocyte Esterase Neg (Negative) 05/01/21 Unknown Urine WBC (Auto) 6.0 /HPF (0.0-6.0) 05/01/21 Unknown Urine RBC (Auto) 4.0 /HPF (0.0-6.0) 05/01/21 Unknown U Epithel Cells (Auto) 4.0 /HPF (0-13.0) 05/01/21 Unknown Urine Bacteria (Auto) 1+ /HPF (Negative) 05/01/21 Unknown Urine Mucus Few /HPF 05/01/21 Unknown Vancomycin Trough 8.5 ug/mL (5.0-20.0) 05/06/21 05:08 Blood Type O POSITIVE 05/01/21 03:25 Antibody Screen Negative 05/01/21 03:25 Microbiology: Microbiology 05/01/21 Unknown Wound - Deep Wound Culture - Preliminary Enterococcus Faecalis Proteus Penneri Sales/IV: Voiding Method Toilet Active Medications - Current Medications Current Medications: Generic Name Dose Route Start Last Admin Trade Name Freq PRN Reason Stop Dose Admin Acetaminophen 650 mg 05/01/21 02:30 05/01/21 13:01 Acetaminophen 325 Mg Tab PO 650 mg Q4H PRN Administration Pain MILD(1-3)/Fever >100.5/MORALES Hydrocodone Bitart/Acetaminophen 2 each 05/01/21 02:30 05/06/21 16:52 Hydrocodone/Acetaminophen 5-325 Mg Tab PO 2 each Q6H PRN Administration Pain, Moderate (4-6) Amoxicillin/Clavulanate Potassium 1 each 05/07/21 10:00 Amoxicillin/K Clav 875/125mg Tab PO 05/13/21 22:01 Q12HR [facility] Protocol Heparin Sodium (Porcine) 5,000 unit 05/01/21 06:00 05/07/21 06:09 Heparin 5,000 Unit/1 Ml Vial SUB-Q 5,000 unit Q8HR MARI Administration Dextrose/Sodium Chloride 1,000 mls @ 125 mls/hr 05/02/21 18:30 05/06/21 22:56 D5ns IV 125 mls/hr DIRECT MARI Administration Insulin Human Regular 0 units 05/01/21 17:30 05/07/21 08:46 Insulin Regular, Human 100 Units/1 Ml SUB-Q Not Given ACHS [facility] Protocol Ketorolac Tromethamine 15 mg 05/06/21 10:30 05/06/21 13:15 Ketorolac 30 Mg/1 Ml Inj IV 05/11/21 10:29 15 mg Q6H PRN Administration Pain, Moderate (4-6) Morphine Sulfate 2 mg 05/02/21 17:51 05/05/21 21:35 Morphine 2 Mg/1 Ml Inj IV 2 mg Q4H PRN Administration Pain , Severe (7-10) Ondansetron HCl 4 mg 05/01/21 02:30 05/05/21 09:27 Ondansetron 4 Mg/2 Ml Inj IV 4 mg Q8H PRN Administration Nausea And Vomiting Senna 8.6 mg 05/01/21 02:30 Sennosides 8.6 Mg Tab PO Q12HR PRN Constipation Sodium Chloride 10 ml 05/01/21 10:00 05/06/21 22:53 Sodium Chloride 0.9% 10 Ml Flush Syringe IV 10 ml BID MARI Administration Sodium Hypochlorite 1 applic 05/05/21 07:00 05/06/21 23:36 Sodium Hypochlorite, Dakin's Full Strength (0.5%) 473 Ml Topical Soln TP 1 applicatio Q12H MARI Administration Nutrition/Malnutrition Assess - Dietary Evaluation Nutrition/Malnutrition Findings: Nutrition Notes Start: 05/06/21 13:26 Freq: Status: Active Protocol: Document 05/06/21 13:26 (Rec: 05/06/21 13:38 [id number]) Nutrition Notes Need for Assessment generated from: LOS Initial or Follow up Assessment Current Diagnosis Diabetes,Sepsis,Respiratory Failure Other Pertinent Diagnosis DM foot ulcer Current Diet Cardiac, Consistent CHO Labs/Tests reviewed Pertinent Medications D5NS at 125 ml/hr Height 5 ft 5 in Weight 103.2 kg Usual Body Weight 102.7 kg [place] Body Weight (kg) 56.81 BMI 37.8 Intake Prior to Admission Excellent Weight Status Morbidly Obese Subjective/Other Information Screen for LOS. Pt reports eating well [employer] and no recent wt loss. Since R toe amputation yesterday, pt without appetite. Pt open to ONS. No food prefrences. Burn Absent Trauma Absent Current % PO Negligible Minimum of two criteria No physical signs of malnutrition #2 Nutrition Diagnosis Increased nutrient needs ( specify in comment below) Comments: protein Etiology wound healing As Evidenced by Signs and Symptoms right toe amputation #1 Nutrition Diagnosis Inadequate oral intake Etiology right toe amputation As Evidenced by Signs and Symptoms pt eating 0% of meals Is patient on ventilator? No Is Patient Ambulatory and/or Out of Bed No REE-([facility]-confined to bed) 1987.008 Kcal/Kg value to use for calculation 14 Approximate Energy Requirements Using 1445 kcal/Kg Calculation Used for Recommendations Kcal/kg Additional Notes Protein: (1.25-1.5g/kg AdjBW: 80kg) 100-120 Fluid: 1 ml/kcal Nutrition Intervention Change Diet Order: continue Add Supplement/Snack (indicate name/kcal Glucerna TID /protein ) Provides kCal: 660 Provides Protein (gm) 30 Goal #1 Meet at least 75% of energy and protein needs via PO and ONS Anticipated Discharge Needs: Cardiac, Consistent CHO Follow-Up By: 05/11/21 Additional Comments FU for intakes and ONS tolerance
[2021-05-07] MEDS: AMOXICILLIN/K CLAV 875/125MG TAB PO SCH ×2 (09:50→23:19)
[2021-05-07] MEDS: HYDROcodone/ACETAMINOPHEN 5-325 MG TAB PO PRN ×3 (09:50→23:22)
[2021-05-07] MEDS: SODIUM HYPOCHLORITE, DAKIN'S FULL STRENGTH (0.5%) 473 ML TOPICAL SOLN TP SCH ×2 (16:07→18:19)
[2021-05-08] MEDS ORDERED: SODIUM HYPOCHLORITE, DAKIN'S FULL STRENGTH (0.5%) 473 ML TOPICAL SOLN TP SCH (05:00)
[2021-05-08] MEDS: HEPARIN 5,000 UNIT/1 ML VIAL SUB-Q SCH (06:10)
--- NOTE | 2021-05-08 09:42 | Discharge Summary ---
Providers - Providers Date of Admission: 05/01/21 02:30 Date of discharge: 05/08/21 Attending physician: CARLI BAKER MD 05/01/21 02:23 Consult to Physician [CONS] Routine Comment: Consulting Provider: [facility] Physician Instructions: Reason For Exam: osteomylitis 05/01/21 02:28 Consult to Physician [CONS] Routine Comment: Consulting Provider: [facility] Physician Instructions: Reason For Exam: diabetic foot Ulcer 05/01/21 02:39 Consult to Wound/ET Nurse [CONS] Routine Reason For Exam: wound eval 05/02/21 09:06 Consult to Physician [CONS] Routine Comment: Consulting Provider: BERENICE WILLIAM Physician Instructions: Reason For Exam: Right great toe osteomyelitis 05/03/21 08:33 Consult to Physician [CONS] Routine Comment: Consulting Provider: ERICKA LOPEZ Physician Instructions: Reason For Exam: osteo, foot cellulitis 05/04/21 12:00 Physical Therapy Evaluation and Treat [CONS] Routine Comment: Reason For Exam: eval and treat, gait training. 05/04/21 12:09 Consult to Physician [CONS] Routine Comment: Consulting Provider: SHERRY EVANS Physician Instructions: Reason For Exam: please eval for great toe amputation Primary care physician: [employer] Hospitalization Reason for admission: Right toe pain Condition: Fair Hospital course: # Sepsis. - Present on admission. Patient meets criteria given the leukocytosis, tachycardia and diagnosis of osteomyelitis. - now resolved, vss - wbc count improving, 13.5 on admission now 6.5. Blood cultures no growth to date. Wound culture demonstrates Enterococcus and Proteus Likely colonization Deep tissue culture micro pending - Blood cultures no growth to date -IV vancomycin, IV ceftriaxone discontinued, switched to Augmentin p.o. Infectious disease following # Right great toe osteomyelitis status post amputation XR foot 04/30/2021: Osteomyelitis with extensive soft tissue infection -Amputation by general surgery on 05/05/2021 -PT consulted, recommendations noted Management as above Infectious disease and general surgery following # Status post debridement by general surgery Plan for amputation evaluation per discussion with general surgery this morning # Right foot cellulitis Management as above # Diabetic foot ulcer. Management as above # Diabetes mellitus type 2, uncontrolled - accuchecks ac/hs - SSI # Acute kidney injury. (Resolved) - Etiology likely secondary to sepsis/ATN +/-vasomotor nephropathy. -Creatinine now at baseline Avoid nephrotoxic agents # PCOS Chronic #DVT prophylaxis Heparin 5000 units subcu every 8 hour Hospital course to date: 05/01/2021. Continue IV antibiotics and follow-up blood cultures. ID consultation pending. Consider surgery consultation. 05/02/2021. Consult general surgery for further evaluation. Continue IV antibiotics and follow-up blood cultures. ID consultation pending. 05/03/2021. Surgery to perform OR debridement today. Vascular surgery also following. Follow-up arterial ultrasound. Continue empiric IV antibiotics. Await ID consultation. BG is well controlled with current regimen. 05/04/2021: s/p debridement yesterday with gen surgery. D/w Dr. William who states that patient needs evaluation for great toe amputation. Dr. Evans will be consulted to evaluate. Physical therapy consulted for heel offloading and gait training. 05/05/2021: plan for TMA today with Dr. Evans. Will follow up post op. Spoke with mother on phone regarding patient clinical status. Mother states that she would like the patient to go to her home in [facility]. Patient yesterday had mentioned that she would be going to her mother's place at the time of discharge. 05/06/2021: Status post right toe amputation. Patient complaining of pain we will add Toradol to pain regimen to be alternated with hydrocodone, with morphine for breakthrough pain. We will coordinate with general surgery and infectious disease regarding final recommendations. Coordinate with business case analyst for patient outpatient set up of physical therapy and outpatient antibiotics. 05/07/2021: Anticipating discharge tomorrow. Working with CM for outpatient set up of rehab. 05/08/2021: Currently working on set up for home health physical therapy patient would like to be discharged to mother's residence in [place], [place]. Case management currently working with [employer] to get authorization. Patient will be discharged home with prescriptions for Augmentin to be taken twice a day until completion of antibiotic course (total 7 days) for completion of an antibiotic therapy for osteomyelitis, Lantus Solostar pen 10 units taken nightly for her diabetes, Percocet 5/325 every 6 hours as needed for pain. Patient will be advised to follow-up with primary care physician in 1 week. Patient is also advised to follow-up with her general surgeon Dr. Evans in 1-2 weeks. Disposition: 06 [facility] Final Discharge Diagnosis (Prints w/discharge instructions): Right foot osteomyelitis Core Measure Documentation - Palliative Care Palliative Care/ Comfort Measures: Not Applicable - Core Measures Any of the following diagnoses?: none Exam - Physical Exam Narrative exam: Physical Exam: Constitutional: Alert, cooperative. No acute distress Head, Ears, Nose: Normocephalic, atraumatic. External ears, nose normal Eyes: Conjunctivae/corneas clear. No icterus. No ptosis. Neck: Supple, no meningeal signs Oral: dentition fair, no thrush Cardiovascular: S1, S2 normal. Respiratory: Good air entry, clear to auscultation bilaterally GI: Soft, non-tender; bowel sounds normal. No peritoneal signs. Musculoskeletal: No pedal edema, no cyanosis. Skin: No rash or abscess Extremity: Status post right toe amputation Hem/Lymphatic: No palpable cervical or supraclavicular nodes. No lymphangitis Psych: Mood ok. Affect normal Neurological: Awake, alert, oriented. No gross abnormality - Constitutional Vitals: Temp Pulse Resp BP Pulse Ox 97.6 F 72 18 138/71 100 05/08/21 08:45 05/08/21 08:45 05/08/21 08:45 05/08/21 08:45 05/08/21 08:45 Plan Follow up with: PRIMARY CARE, [Primary Care Provider] - 7 Days Prescriptions: Insulin Glargine,Hum.rec.anlog [Lantus Solostar] 10 unit SQ QHS 30 Days #3 pen Amoxicillin/K Clav Tab [Augmentin 875MG TAB] 1 each PO Q12HR 6 Days #12 tablet oxyCODONE /ACETAMINOPHEN [Percocet 5/325] 1 tab PO Q6HR PRN 3 Days #12 tablet PRN Reason: Pain
[2021-05-08] MEDS: AMOXICILLIN/K CLAV 875/125MG TAB PO SCH (11:20)
[2021-05-08] MEDS: INSULIN REGULAR, HUMAN 100 UNITS/1 ML SUB-Q SCH (11:22)
[2021-05-08 12:31] VITALS: BP 121/58
== END 2021-05-08 13:00 | disposition home health service (06) | DRG 853 ==
LOC: ED 18:02 → 3A 05-01 02:30 → 4A 05-01 09:45
PROVIDERS: ADMIT Internal Medicine Geriatric Medicine; ATTEND Internal Medicine
PROC: B41D1ZZ Fluoroscopy of Aorta and Bilateral Lower Extremity Arteries using Low Osmolar Contrast (ICD-10-PCS; 2021-05-03)
PROC: 0QBQ0ZZ Excision of Right Toe Phalanx, Open Approach (ICD-10-PCS; 2021-05-04)
PROC: 0Y6M0Z9 Detachment at Right Foot, Partial 1st Ray, Open Approach (ICD-10-PCS; principal; 2021-05-05)
DX: A41.9 Sepsis, unspecified organism (principal); N17.0 Acute kidney failure with tubular necrosis; M86.671 Other chronic osteomyelitis, right ankle and foot; R65.20 Severe sepsis without septic shock; L03.031 Cellulitis of right toe; E11.621 Type 2 diabetes mellitus with foot ulcer; E28.2 Polycystic ovarian syndrome; L97.519 Non-pressure chronic ulcer of other part of right foot with unspecified severity; E11.69 Type 2 diabetes mellitus with other specified complication; Z83.3 Family history of diabetes mellitus; Z79.899 Other long term (current) drug therapy
CPT/HCPCS: 36247; 36415; 71045; 75625; 75710; 76937; 80048; 80053; 80202; 81001; 82140; 82962; 83036; 85025; 85652; 86850; 86900; 86901; 87040; 87075; 87116; 87186; 88302; 88304; 88305; 88309; 88311; 96374; G0378; A6260; C1760; C1769; C1887; J0690; J0696; J1170; J1644; J1815; J1885; J2250; J2270; J2405; J2543; J2704; J3010; J3370; J7030; J7040; J7042; Q9967